=== PATIENT | male | born 1970 | race Caucasian/White ===

== ENCOUNTER 2022-06-01 19:23 | Outpatient (CLI) | payer BC, SELFPAY ==
[2022-06-01 12:31] LABS: Albumin* 4.1 g/dL (3.3-5.0)
[2022-06-01 12:32] LABS: Potassium* 4.3 mmol/L (3.6-5.1)
[2022-06-01 12:34] LABS: Aspartate Amino Transferase* 26 U/L (12-35); Bilirubin Total* 0.2 mg/dL (0.1-1.5); Blood Urea Nitrogen* 15 mg/dL (7-30); Creatinine* 1.2 mg/dL (0.5-1.5); Estimated Glomerular Filt Rate 73 ml/min; Total Protein* 6.6 g/dL (6.0-8.3)
[2022-06-01 12:35] LABS: Alanine Aminotransferase* 34 U/L (4-50); Calcium* 8.8 mg/dL (8.4-10.6); HDL Cholesterol* 33 mg/dL (>=40)
[2022-06-01 12:48] LABS: Vitamin D 25 Hydroxy* 40 ng/mL (30-80)
[2022-06-01 13:12] LABS: Alkaline Phosphatase* 188 U/L (40-150); Carbon Dioxide* 25 mmol/L (20-32); Chloride* 109 mmol/L (96-114); Cholesterol* 167 mg/dL (90-199); Glucose* 122 mg/dL (60-115); LDL Cholesterol Calculated 90 mg/dL (<100); Sodium* 142 mmol/L (135-149); Triglycerides* 221 mg/dL (40-149)
== END 2022-06-01 19:24 | disposition home or self-care (01) ==
PROVIDERS: Nurse Practitioner Family; PCP Family Medicine; Visit Provider Family Medicine
DX: Z00.00 Encounter for general adult medical examination without abnormal findings (principal); E78.00 Pure hypercholesterolemia, unspecified; I10 Essential (primary) hypertension; Z79.899 Other long term (current) drug therapy
CPT/HCPCS: 80053; 80061; 82306

== ENCOUNTER 2022-06-07 08:45 | Outpatient (CLI) | payer BC, SELFPAY ==
[2022-06-07 16:05] LABS: Phosphorus* 3.4 mg/dL (2.5-4.5)
[2022-06-07 16:55] LABS: Vitamin B12* 322 pg/mL (243-894)
== END 2022-06-07 08:46 | disposition home or self-care (01) ==
PROVIDERS: PCP Family Medicine; Visit Provider Family Medicine
DX: Z00.00 Encounter for general adult medical examination without abnormal findings (principal); E78.1 Pure hyperglyceridemia; I10 Essential (primary) hypertension; G43.109 Migraine with aura, not intractable, without status migrainosus; Z79.899 Other long term (current) drug therapy; H53.2 Diplopia; F41.9 Anxiety disorder, unspecified
CPT/HCPCS: 82607; 84100; 84443

== ENCOUNTER 2022-08-02 15:06 | Outpatient (CLI) | payer BC, SELFPAY ==
[2022-08-02 22:41] LABS: Free T4 Free Thyroxine* 0.35 ng/dL (0.70-1.85)
[2022-08-08 10:36] LABS: Sex Hormone Binding Globulin 25 nmol/L (19-76); Testosterone, Free LC-MS/MS 50.6 pg/mL (47.0-244.0); Testosterone, LC-MS/MS 249 ng/dL (300-890)
== END 2022-08-02 15:07 | disposition home or self-care (01) ==
LOC: LKVREF 15:07
PROVIDERS: PCP Family Medicine; Visit Provider Nurse Practitioner Family
DX: Z00.00 Encounter for general adult medical examination without abnormal findings (principal); F32.A Depression, unspecified; E66.9 Obesity, unspecified
CPT/HCPCS: 84270; 84402; 84403; 84439; 84481

== ENCOUNTER 2022-11-13 08:27 | Outpatient (CLI) | payer BC, SELFPAY ==
[2022-11-13 13:50] LABS: Chloride* 112 mmol/L (96-114); Sodium* 147 mmol/L (135-149)
[2022-11-13 13:52] LABS: Bilirubin Total* 0.3 mg/dL (0.1-1.5); Creatinine* 1.1 mg/dL (0.5-1.5); Estimated Glomerular Filt Rate 81 ml/min
[2022-11-13 13:53] LABS: Alanine Aminotransferase* 29 U/L (4-50); Alkaline Phosphatase* 180 U/L (40-150); Aspartate Amino Transferase* 24 U/L (12-35); Blood Urea Nitrogen* 13 mg/dL (7-30); Calcium* 9.8 mg/dL (8.4-10.6); Carbon Dioxide* 29 mmol/L (20-32); Glucose* 140 mg/dL (60-115); Total Protein* 6.9 g/dL (6.0-8.3)
[2022-11-13 13:54] LABS: Potassium* 4.8 mmol/L (3.6-5.1)
[2022-11-13 14:27] LABS: TSH With Reflex to FT4* < 0.015 uIU/mL (0.270-4.200)
[2022-11-13 15:04] LABS: Free T4 Free Thyroxine* 0.24 ng/dL (0.70-1.85)
[2022-11-14 15:31] LABS: Sex Hormone Binding Globulin 38 nmol/L (19-76); Testosterone, Adult Male 269 ng/dL (300-890); Testosterone, Free Calculation 44 pg/mL (47-244); Testosterone, Percentage Free 1.6 % (1.6-2.9)
== END 2022-11-13 08:28 | disposition home or self-care (01) ==
LOC: FRMREF 08:28
PROVIDERS: PCP Family Medicine; Visit Provider Family Medicine
DX: R79.89 Other specified abnormal findings of blood chemistry (principal); I10 Essential (primary) hypertension
CPT/HCPCS: 80053; 84270; 84402; 84403; 84439; 84443

== ENCOUNTER 2023-03-14 09:25 | Outpatient (CLI) | payer BC, SELFPAY | END 2023-03-14 09:26 | disposition home or self-care (01) | LOC: NFLDREF 19:20 | PROVIDERS: PCP Family Medicine; Referring Provider Family Medicine; Visit Provider Family Medicine | DX: R79.89 Other specified abnormal findings of blood chemistry (principal); H53.2 Diplopia; E03.9 Hypothyroidism, unspecified; E66.9 Obesity, unspecified; R73.03 Prediabetes; I10 Essential (primary) hypertension; E78.1 Pure hyperglyceridemia | CPT/HCPCS: 80076; 84270; 84402; 84403; 84439; 84443 ==

== ENCOUNTER 2023-04-26 11:17 | Outpatient (CLI) | payer BC, SELFPAY | END 2023-04-26 11:18 | disposition home or self-care (01) | PROVIDERS: PCP Family Medicine; Visit Provider Family Medicine | DX: E03.9 Hypothyroidism, unspecified (principal); E66.9 Obesity, unspecified | CPT/HCPCS: 84443 ==

== ENCOUNTER 2023-08-13 08:59 | Outpatient (CLI) | payer BC, SELFPAY | END 2023-08-13 09:00 | disposition home or self-care (01) | LOC: NFLDREF 08-16 20:43 | PROVIDERS: PCP Family Medicine; Referring Provider Family Medicine; Visit Provider Family Medicine | DX: D58.2 Other hemoglobinopathies (principal); R79.89 Other specified abnormal findings of blood chemistry | CPT/HCPCS: 84270; 84402; 84403 ==

== ENCOUNTER 2023-08-27 09:33 | Outpatient (CLI) | payer BC, SELFPAY | END 2023-08-27 09:34 | disposition home or self-care (01) | LOC: NFLDREF 08-29 06:01 | PROVIDERS: PCP Family Medicine; Referring Provider Family Medicine; Visit Provider Family Medicine | DX: D58.2 Other hemoglobinopathies (principal); E03.9 Hypothyroidism, unspecified; R73.03 Prediabetes; R79.89 Other specified abnormal findings of blood chemistry; D61.818 Other pancytopenia | CPT/HCPCS: 80076; 82728; 84270; 84402; 84403; 84443 ==

== ENCOUNTER 2023-09-19 18:53 | Outpatient (CLI) | payer BC, SELFPAY ==
--- NOTE | 2024-05-12 09:16 | W.PM.SLEEP ---
Sleep Study Details Details Interpreting Provider: Milton Date of Sleep Study: 09/19/23 Sleep Study Details: STUDY TYPE:? Home unattended ? BMI:? Not recorded ORDERING PROVIDER:? Milton INDICATION:? Concern about sleep apnea ? SLEEP SUMMARY:? 442 minutes monitored RESPIRATORY SUMMARY:? AHI 17.6 11.3% of study oxygen below 90%, low oxygen 83 Snoring 8.3% PERIODIC LIMB MOVEMENTS OF SLEEP:? Not recorded CARDIAC:? Range 18-103, mean 70.5 IMPRESSION:? Significant bradycardia noted further cardiac evaluation may be indicated Moderate obstructive sleep apnea RECOMMENDATION: Treatment options for the sleep apnea include CPAP dental appliance and/or airway expansion surgery. Further cardiac evaluation may be indicated.
== END 2023-09-19 18:54 | disposition home or self-care (01) ==
PROVIDERS: PCP Family Medicine; Visit Provider Otolaryngology
DX: G47.33 Obstructive sleep apnea (adult) (pediatric) (principal); R00.1 Bradycardia, unspecified
CPT/HCPCS: 95806

== ENCOUNTER 2023-10-29 08:39 | Outpatient (CLI) | payer BC, SELFPAY ==
--- OUTSIDE RECORDS SUMMARY | 2023-10-29 08:55 | XMS_ITS | Encounter Summary ---
Author Name Unknown Organization [facility] Address [address] [place] [address] Care Team Providers Care Director Print Name Role Phone Everett Hendrix MD Primary Care Provider Encounter Details Date Type Department Care Team Description 06/19/1998 Orders Only Luis Alberto Cadena MD [address] [place], [place] [id number] Social History Tobacco Use Types Packs/Day Years Used Date Smoking Tobacco: Never Assessed Sex and Gender Information Value Date Recorded Sex Assigned at Not on file Gender Identity Not on file Sexual Orientation Not on file documented as of this encounter Plan of Treatment Not on file documented as of this encounter Visit Diagnoses Not on filedocumented in this encounter Care Teams Director Print Relationship Specialty Start Date End Date Everett Hendrix MD [address] [place] [address] PCP - General 07/07/14 documented as of this encounter
--- OUTSIDE RECORDS SUMMARY | 2023-10-29 08:55 | XMS_ITS | Clinical Summary ---
Author Name Unknown Organization [facility] Address [place], [place] [address] Care Team Providers Care Wire Lather Name Role Phone Jean Alfaro [facility] Unavailable [phone] Aquiles Mcelroy MD Primary Care Provider [phone] Allergies No known active allergies Medications Medication Sig Dispensed Refills Start Date End Date Status medication order composer Due patients migraines, diagnosis 346.90, it is suggested that patient have a 20% tint to the windows in his personal vehicle. 1 use 0 10/21/2014 Active rizatriptan (MAXALT) 5 mg tabletIndications:Mi graine without status migrainosus, not intractable, unspecified migraine type TAKE ONE TABLET BY MOUTH EVERY 2 HOURS NEEDED FOR MIGRAINE. MAX 6 TABLETS IN 24 HOURS. 9 tablet 7 12/02/2017 Active topiramate (TOPAMAX) 25 mg tab Take 75 mg by mouth 2 times daily. 0 11/11/2017 Active venlafaxine (EFFEXOR XR) 37.5 mg Extended-Release capsuleIndications:M igraine without status migrainosus, not intractable, unspecified migraine type,Generalized anxiety disorder TAKE ONE CAPSULE BY MOUTH EVERY DAY WITH A MEAL WITH THE 150 MG CAPSULE 30 capsule 0 06/10/2018 Active methylPREDNISolone (MEDROL DOSEPAK) 4 mg tabletIndications:Ch ronic left-sided low back pain without sciatica Take by mouth as instructed per packaging. 1 Package 0 06/29/2018 Active amitriptyline (ELAVIL) 10 mg tablet TAKE 3 TABLETS BY MOUTH AT BEDTIME FOR 7 DAYS , THEN TAKE 4 TABLETS AT BEDTIME 5 03/17/2019 Active AJOVY 225 mg/1.5 mL syrg INJECT 1.5ML UNDER THE SKIN MONTHY 3 12/19/2018 Active busPIRone (BUSPAR) 30 mg tablet TAKE 1/2 TABLET BY MOUTH EVERY MORNING AND TAKE ONE TABLET BY MOUTH AT BEDTIME 0 11/28/2021 Active acetaminophen-caffei ne-butalbital (FIORICET) 325-40-50 mg capsule TAKE ONE TO TWO CAPSULES BY MOUTH EVERY 4 HOURS NEEDED MAX 6/DAY 0 09/08/2021 Active propranolol ER (INDERAL LA) 80 mg Cs24 Sustained-Release capsule Take 80 mg by mouth once daily. 0 01/16/2022 Active scopolamine 1mg over 3 days (TRANSDERM SCOP) patch APPLY ONE PATCH ONTO THE SKIN EVERY 72 HOURS . 0 11/12/2021 Active Aimovig Autoinjector 70 mg/mL auto-injector INJECT CONTENTS OF ONE SYRINGE EVERY MONTH DIRECTED 0 01/15/2022 Active dextroamphetamine-am phetamine (ADDERALL XR) 30 mg Extended-Release capsule Take 30 mg by mouth once daily. 0 12/07/2021 Active buPROPion (WELLBUTRIN XL) 150 mg Extended-Release tablet Take 150 mg by mouth once daily. 0 11/20/2021 Active Active Problems Problem Noted Date Diagnosed Date Elevated fasting glucose 02/10/2017 Overview: January 2017: fasting 113. Repeat February 2017, fasting 101 and A1c 4.6 Generalized anxiety disorder 05/31/2016 Overview: May 2016: episodic anxiety, started sertraline (Zoloft). Severe side effects so Patient stopped after 9 days. Aug 2016: Increased buspirone to 10mg twice daily, via Technical Machine Message. January 2017: Added effexor XR. February 2017: increased dose to 150mg Rectal bleeding 12/23/2015 Overview: He underwent a colonoscopy a Jun 2011 by ??Shay at the [facility].?? Jul 2016: colonoscopy by ??Shay at the [facility], recommended repeat in 5 years, no abnormality found on this colonoscopy. Calculus of gallbladder with acute on chronic cholecystitis without obstruction 12/12/2015 LOC (loss of consciousness) 09/20/2015 Overview: August 2015: episode of LOC and nausea and retrograde amnesia, seen in ER and had Negative Head CT. Testicular abnormality 10/01/2014 Overview: Sep 28, 2014: Ultrasound shows 7mm abnormality in left testicle and recommended 1-2 month repeat ultrasound. Postoperative ileus 08/13/2014 Obesity 08/13/2014 Lumbar disc herniation with radiculopathy 2013 Overview: 2013: MRI February shows L5-S1 disc herniation. 2013: MedX program through [facility]. Jul 2017: At [facility]< Right, TF JANNETH at S1, lidocaine was 75% relief. ~ December 2017: L5-S1 TF epidural steroid injection at [facility]. Dizziness - light-headed 02/19/2013 Overview: Holter monitor outside ([facility]) clinic February 2011, see scan. Hydrocele, left 11/20/2012 Overview: Ultrasound Eufemia Wilder Apr 2006. Migraine headache Overview: Has aura. Work up April 2014 through [facility], MRI/MRA of neck and brain. November 2015: Dr. Alfaro Follow up neurologist, continue Depakote. November 2016: yearly follow up with Dr. Alfaro. Apr 2017: increased Depakote. November 2017: Dr. Alfaro Changed depakote to Topamax due to weight gain. December 2018: Neurologist started Ajovy. Immunizations Name Administration Dates Next Due Influenza A (H1N1), Inactiva jeff (Age >=3 Years) 07/21/2009 Influenza Virus, Unspecified 05/24/2016, 06/26/2012,06/28/2011,2009,11/07/2007 Influenza, IIV4 07/20/2014 Influenza, IIV4 (=>6mos) MDV 08/20/2017 Td (Age >=7 Years) 05/26/2002 Tdap 09/20/2009 Family History * Patient is adopted Medical History Relation Name Comments Cancer Father Thinks Lung can cer. Other Maternal Aunt MS, in 40 's. Mental illness Mother Anxiety and d epression Relation Name Status Comments Father Maternal Aunt Mother Social History Tobacco Use Types Packs/Day Years Used Date Smoking Tobacco: Never Smokeless Tobacco: Never Tobacco Cessation:Counseling Given: Yes Alcohol Use Standard Drinks/Week Comments No 1.7 (1 standard drink = 0.6 oz p ure alcohol) social-rare Social Connections Answer Date Recorded Frequency of Communication with Friends and Fami ly Not on file 09/23/2021 Financial Resource Strain Answer Date R ecorded Difficulty of Paying Living Expenses Not on file 09/23/2021 Difficulty of Paying Living Expenses Not on file 09/23/2021 Sex and Gender Information Value Date Recorded Sex Assigned at Not on file Gender Identity Not on file Sexual Orientation Not on file Obstetrics History Last Filed Vital Signs Vital Sign Reading Time Taken Comments Blood Pressure 130/81 02/09/2022 2:00 PM CDT Pulse 85 02/09/2022 2:00 PM CDT Temperature 36.5 ??C (97.7 ??F) 02/09/2022 2:00 PM CD T Respiratory Rate 12 02/09/2022 2:00 PM CDT Oxygen Saturation 97% 02/09/2022 2:00 PM CDT Inhaled Oxygen Concentration - - Weight 111.1 kg (245 lb) 02/09/2022 2:00 PM CDT Height 180.3 cm (5' 11) 02/09/2022 2:00 PM CDT Body Mass Index 34.17 02/09/2022 2:00 PM CDT Plan of Treatment Health Maintenance Due Date Last Done Comments HIV for age 15-65 1986 Hepatitis C screening for age 18-79 1989 Depression screening for age 12+ 08/22/2018 08/22/2017, 08/19/2017, 03/11/2017, Additional history exists BMI (ht and wt on same day) for age 18+ 12/20/2018 12/20/2017, 07/22/2017, 03/11/2017, Additional history exists Tetanus booster 09/20/2019 09/20/2009, 05/26/2002 Zoster (shingles) series for age 50+ (1 of 2) 2021 Lipids for age 45-75 12/20/2022 12/20/2017, 12/23/2015, 04/23/2014, Additional history exists COVID-19 vaccine series ( season) 2023 01/31/2022, 08/09/2021, 11/15/2020, Additional history exists Influenza for age 50-64 05/24/2023 08/20/20 17, 05/24/2016, 07/20/2014, Additional history exists Colonoscopy through age 75 07/27/2026 07/27/2016, Tdap Completed 09/20/2009 Pneumococcal series for age 6-64 Aged Out No longer eligible based on patient's age to complete this topic Advance Directives Latest Code Status on File Code Status Date Activated Date Inactivated Comments Full Code 08/13/2014 7:55 AM 08/14/2014 3:28 PM Code Status History Code Status Date Activated Date Inactivated Comments Full Code 08/10/2014 10:45 AM 08/11/2014 2:38 PM Full Code 08/10/2014 6:12 AM 08/10/2014 10:45 AM Care Teams Wire Lather Relationship Specialty Start Date End Date Aquiles Mcelroy MD [address] [place] [address] [facility] - General 03/30/19 Jean Alfaro, [facility] Neurology Neurology 04/29/17
--- OUTSIDE RECORDS SUMMARY | 2023-10-29 08:55 | XMS_ITS | Encounter Summary ---
Author Name Unknown Organization [facility] Address [address] [place] [address] Care Team Providers Care Curtain Framer Name Role Phone Everett Hendrix MD Primary Care Provider [phone] Encounter Details Date Type Department Care Team Description 04/10/1996 Notes/Orders Alonzo Chapman MD [address] [place] [address] Social History Tobacco Use Types Packs/Day Years Used Date Smoking Tobacco: Never Assessed Sex and Gender Information Value Date Recorded Sex Assigned at Not on file Gender Identity Not on file Sexual Orientation Not on file documented as of this encounter Plan of Treatment Not on file documented as of this encounter Visit Diagnoses Not on filedocumented in this encounter Care Teams Curtain Framer Relationship Specialty Start Date End Date Everett Hendrix MD [address] [place] [address] PCP - General 07/07/14 documented as of this encounter
--- OUTSIDE RECORDS SUMMARY | 2023-10-29 08:55 | XMS_ITS | Continuity of Care Document ---
Author Name [facility] Organization [facility] Care Team Providers Care Manufacturing Tech Name Role Phone [facility] Unavailable Unavailable Problems Combined list of problems from Department of Defense and [facility] facilities. It does not include entries that were removed or entered in error. Problem Status Onset Date Problem Type Date of Resolution Comments Source Diagnosis: ICD-10-CM Z46.1 Encounter for fitting and adjustment of hearing aid Active Diagnosis [facility] Diagnosis: ICD-10-CM H90.3 Sensorineural hearing loss, bilateral Active Diagnosis [facility] Diagnosis: ICD-10-CM Z02.89 Encounter for other administrative examinations Active Diagnosis [facility] Encounters Combined list of: 1) Encounters from Department of Veterans Affairs facilities going back up to thelast 18 months. 2) Encounters from the Department of [place] facilities going back up to 280 months. Location Location Details Encounter Type Encounter Number Reason For Visit Attending Provider ADM Date DC Date Status Disposition Source [facility] Outpatient Encounter [id number] Diagnos is: ICD-10- CM Z02.89 Encount er for other adminis trative examina tions<b r/> JOI TRAN 10/25 [facility] [place] [id number] Diagnos is: ICD-10- CM H90.3 Sensori neural hearing loss, bilater al
GABRIELLE FRAGOSO RSEDINSON M 02/27 [facility] [id number] Diagnos is: ICD-10- CM Z46.1 Encount er for fitting and adjustm ent of hearing aid<br/ > GABRIELLE FRAGOSO RSTEN M 04/22 [facility]
--- OUTSIDE RECORDS SUMMARY | 2023-10-29 08:55 | XMS_ITS | Clinical Summary ---
Author Name Unknown Organization [facility] Address [address] [place] [address] Care Team Providers Care Order Make Up Clerk Name Role Phone Kecia Guillen GC Unavailable Everett Hendrix MD Primary Care Provider Active Problems Problem Noted Date Diagnosed Date Lumbar radiculopathy 03/05/2014 Social History Tobacco Use Types Packs/Day Years Used Date Smoking Tobacco: Never Assessed Adolescent Education Answer Date Record ed Getting School Help Needed Not on file 06/23 Sex and Gender Information Value Date Recorded Sex Assigned at Not on file Gender Identity Not on file Sexual Orientation Not on file Plan of Treatment Health Maintenance Due Date Last Done Comments ADVANCE CARE PLANNING 1971 ANNUAL REVIEW OF HM ORDERS 1971 CT COLONOGRAPHY 1971 FIT 1971 FLEX SIG 1971 GLUCOSE 1971 HEPATITIS B IMMUNIZATION (1 of 3 - 3-dose series) 1971 YEARLY PREVENTIVE VISIT 1971 sDNA (Cologuard) 1971 COVID-19 Vaccine (#1) 1971 COLONOSCOPY 1981 COLORECTAL CANCER SCREENING 1981 HIV SCREENING 1986 HEPATITIS C SCREENING 1989 DTAP/TDAP/TD IMMUNIZATION (1 - Tdap) 1996 LIPID 2011 ZOSTER IMMUNIZATION (1 of 2) 2021 INFLUENZA VACCINE (#1) 2023 6, 07/20/2014, 06/26/2012, Additional history exists PHQ-2 (once per calendar year) 2023 HPV IMMUNIZATION Aged Out No longer e ligible based on patient's age to complete this topic IPV IMMUNIZATION Aged Out No longer e ligible based on patient's age to complete this topic MENINGITIS IMMUNIZATION Aged Out No l onger eligible based on patient's age to complete this topic Pneumococcal Vaccine: Pediatrics (0 to 5 Years) and At-Risk Patients (6 to 64 Years) Aged Out No longer eligible based on patient's age to complete this topic RSV MONOCLONAL ANTIBODY Aged Out No l onger eligible based on patient's age to complete this topic Care Teams Order Make Up Clerk Relationship Specialty Start Date End Date Everett Hendrix MD [address] [place] [address] PCP - General Family Medicine - Sports Medicine 08/01/17 Kecia Guillen GC [address] [place] [address] Genetic Counselor Genetic Counselor, [place] 07/15/17
--- OUTSIDE RECORDS SUMMARY | 2023-10-29 08:55 | XMS_ITS | Clinical Summary ---
Author Name Unknown Organization [facility] Address [address] [place] [address] Care Team Providers Care Exterior Interior Specialist Name Role Phone Everett Hendrix MD Primary Care Provider [phone] Source Comments You are receiving this document as you are listed as the primary care provider,follow-up provider, or the patient has been referred to you for consultation.This is in compliance with the Medicare and[facility] Hospital[facility] EHR Incentive Program,which states Providers who transition their patient to another setting of careor provider of care or refers their patient to another provider of care shouldprovide summary care record for each transition of care or referral. [facility] Allergies Active Allergy Reactions Criticality Noted Date Comments Aspirin Unknown 06/22/1998 No history of reaction, told as child he was allergic by parents. Aspirin Unknown 08/07/2000 No history of reaction, told as child he was allergic by parents. Medications Medication Sig Dispensed Refills Start Date End Date Status acetaminophen-isomet heptene-dichloral (AKA MIDRIN) 65-100-325 MG capsule Take 2 capsules by mouth every 4 hours as needed. LW Addl Instr:Maximum capsules 8/day. 30 0 03/05/2008 Active UNKNOWN MEDICATION Indications: PN: 0 11/07/2007 Active amitriptyline (ELAVIL) 10 MG tablet Take 40 mg by mouth daily at bedtime. 0 06/04/2022 Active amphetamine-dextroam phetamine XR (ADDERALL XR) 20 MG 24 hour release capsule Take 20 mg by mouth every morning. 0 04/03/2022 Active buPROPion (WELLBUTRIN XL) 300 MG 24 hour release tablet Take 300 mg by mouth every morning. 0 06/05/2022 Active busPIRone (BUSPAR) 30 MG tablet Take 30 mg by mouth two times a day. 0 05/27/2022 Active butalbital-acetamino phen-caffeine (FIORICET) 50-325-40 MG tablet Take by mouth. 0 06/20/2022 Active AIMOVIG 70 MG/ML injection Inject subcutaneously every 4 weeks. 0 04/16/2022 Active liothyronine (CYTOMEL) 25 MCG tablet Take 25 mcg by mouth daily. 0 06/14/2022 Active propranolol (INDERALLA) 80 MG 24 hour release capsule Take 80 mg by mouth daily. 0 04/28/2022 Active rizatriptan (MAXALT-NURSE GYNECOLOGY) 5 MG disintegrating tablet Take 5 mg by mouth daily as needed. 0 03/25/2022 Active topiramate (TOPAMAX) 100 MG tablet Take 100 mg by mouth two times a day. 0 05/11/2022 Active venlafaxine (EFFEXORXR) 150 MG 24 hour release capsule Take by mouth. 0 04/17/2022 Active liothyronine (CYTOMEL) 50 MCG tablet Take 1 Tablet (50 mcg) by mouth every morning. 0 08/03/2022 Active Active Problems Problem Noted Date Diagnosed Date Migraine 02/27/2003 Overview: Migraine Without Aura Immunizations Name Administration Dates Next Due Flu Vac Preserv Free (3+yrs) 11/07/2007 Td 05/26/2002,09/22/1991 Varicella 06/23/1998(Deferred: Immune by Fredrick iglesias) Social History Tobacco Use Types Packs/Day Years Used Date Smoking Tobacco: Never Tobacco Cessation:Counseling Given: Not Answered Sex and Gender Information Value Date Recorded Sex Assigned at Not on file Gender Identity Not on file Sexual Orientation Not on file Last Filed Vital Signs Vital Sign Reading Time Taken Comments Blood Pressure 116/86 11/07/2007 3:29 PM EMBALMER ASSISTANT Pulse 60 11/07/2007 3:29 PM EMBALMER ASSISTANT Temperature 36.7 ??C (98.1 ??F) 09/04/2006 1 2:13 PM EMBALMER ASSISTANT ORAL C: 36.7 C Respiratory Rate 16 05/09/2006 1:12 PM CDT Oxygen Saturation - - Inhaled Oxygen Concentration - - Weight 90.7 kg (199 lb 15.7 oz) 11/07/2007 3:29 PM EMBALMER ASSISTANT C: 90.7kg Height 179.1 cm (5' 10.5) 11/07/2007 3 :29 PM EMBALMER ASSISTANT C: 179.1cm Body Mass Index 28.29 11/07/2007 3:29 PM EMBALMER ASSISTANT Plan of Treatment Health Maintenance Due Date Last Done Comments Colon Cancer Screening Plan Due 1971 Hep C Screening (Preventive Services) 1971 HepB (1) 1971 PSA Screening Discussion 1971 HIV Screening (Preventive Services) 1987 Adult Preventive Visit 1989 Cholesterol 11/08/2012 11/08/2007, 07/21/2002 Zoster/Shingles (2 of 2) 08/24/2022 06/29/2022 COVID-19 Vaccine ( season) 2023 01/31/2022, 08/09/2021, 11/15/2020, Additional history exists Influenza (#1) 2023 06/29/2022, 06/23, 06/05/2020, Additional history exists DTaP/Tdap/Td (4 - Tdap) 06/01/2029 06/01/20 19, 09/20/2009, 09/20/2009, Additional history exists HepA Aged Out No longer eligi ble based on patient's age to complete this topic Hib Aged Out No longer eligi ble based on patient's age to complete this topic IPV (Polio) Aged Out No longer eligi ble based on patient's age to complete this topic MCV4 Aged Out No longer eligi ble based on patient's age to complete this topic Pneumococcal Aged Out No longer eligi ble based on patient's age to complete this topic Care Teams Exterior Interior Specialist Relationship Specialty Start Date End Date Everett Hendrix MD [address] [place] [address] PCP - General 07/07/14
--- OUTSIDE RECORDS SUMMARY | 2023-10-29 08:56 | XMS_ITS | Referral Summary ---
Author Name Unknown Organization [facility] Address [address] [place] [address] Care Team Providers Care Senior Net Developer Name Role Phone Kecia Guillen GC Unavailable Everett Hendrix MD Primary Care Provider [phone] Active Problems Problem Noted Date Diagnosed Date Lumbar radiculopathy 03/05/2014 Social History Tobacco Use Types Packs/Day Years Used Date Smoking Tobacco: Never Assessed Adolescent Education Answer Date Record ed Getting School Help Needed Not on file 06/23 Sex and Gender Information Value Date Recorded Sex Assigned at Not on file Gender Identity Not on file Sexual Orientation Not on file Plan of Treatment Not on file Care Teams Senior Net Developer Relationship Specialty Start Date End Date Everett Hendrix MD [address] [place] [address] PCP - General Family Medicine - Sports Medicine 08/01/17 Kecia Guillen GC [address] [address] Genetic Counselor Genetic Counselor, [place] 07/15/17
== END 2023-10-29 08:40 | disposition home or self-care (01) ==
LOC: LKVREF 08:52
PROVIDERS: PCP Family Medicine; Visit Provider Family Medicine
DX: R79.89 Other specified abnormal findings of blood chemistry (principal)
CPT/HCPCS: G0103

== ENCOUNTER 2023-12-31 08:34 | Outpatient (CLI) | payer BC, SELFPAY ==
--- OUTSIDE RECORDS SUMMARY | 2024-01-20 13:51 | XMS_ITS | Clinical Summary ---
Author Name Unknown Organization [facility] Address [place], [place] [address] Care Team Providers Care Acid Purification Equipment Operator Name Role Phone Jean Alfaro Claude [facility] Unavailable [phone] Aquiles Mcelroy MD Primary Care Provider [phone] Allergies No known active allergies Medications Medication [...] 75 mg by mouth 2 times daily. 11/11/2017 Active venlafaxine (EFFEXOR XR) 37.5 mg Extended-Release capsuleIndications:M igraine without status migrainosus, not intractable, unspecified migraine type,Generalized anxiety disorder TAKE ONE CAPSULE BY MOUTH EVERY DAY WITH A MEAL WITH THE 150 MG CAPSULE 30 capsule 06/10/2018 Active methylPREDNISolone (MEDROL DOSEPAK) 4 mg tabletIndications:Ch ronic left-sided low back pain without sciatica Take by mouth as instructed per packaging. 1 Package 06/29/2018 Active amitriptyline (ELAVIL) 10 mg tablet TAKE 3 TABLETS BY MOUTH AT BEDTIME FOR 7 DAYS , THEN TAKE 4 TABLETS AT BEDTIME 5 03/17/2019 Active AJOVY 225 mg/1.5 mL syrg INJECT 1.5ML UNDER THE SKIN MONTHY 3 12/19/2018 Active busPIRone (BUSPAR) 30 mg tablet TAKE 1/2 TABLET BY MOUTH EVERY MORNING AND TAKE ONE TABLET BY MOUTH AT BEDTIME 11/28/2021 Active acetaminophen-caffei ne-butalbital (FIORICET) 325-40-50 mg capsule TAKE ONE TO TWO CAPSULES BY MOUTH EVERY 4 HOURS NEEDED MAX 6/DAY 09/08/2021 Active propranolol ER (INDERAL LA) 80 mg Cs24 Sustained-Release capsule Take 80 mg by mouth once daily. 01/16/2022 Active scopolamine 1mg over 3 days (TRANSDERM SCOP) patch APPLY ONE PATCH ONTO THE SKIN EVERY 72 HOURS . 11/12/2021 Active Aimovig Autoinjector 70 mg/mL auto-injector INJECT CONTENTS OF ONE SYRINGE EVERY MONTH DIRECTED 01/15/2022 Active dextroamphetamine-am phetamine (ADDERALL XR) 30 mg Extended-Release capsule Take 30 mg by mouth once daily. 12/07/2021 Active buPROPion (WELLBUTRIN XL) 150 mg Extended-Release tablet Take 150 mg by mouth once daily. 11/20/2021 Active Active Problems Problem Noted Date Diagnosed Date ROSIO (obstructive sleep apnea) 11/29/2023 HTN (hypertension) 11/29/2023 Elevated fasting glucose 02/10/2017 Overview: January 2017: fasting 113. Repeat February 2017, fasting 101 and A1c 4.6 Generalized anxiety disorder 05/31/2016 Overview: May 2016: episodic anxiety, started sertraline (Zoloft). Severe side effects so Patient stopped after 9 days. Aug 2016: Increased buspirone to 10mg twice daily, via DragonRAD Message. January 2017: Added effexor XR. February 2017: increased dose to 150mg Rectal bleeding 12/23/2015 Overview: He underwent a colonoscopy a Jun 2011 by ??Shay at the [facility].?? Jul 2016: colonoscopy by ??Shay at the [facility], recommended repeat in 5 years, no abnormality [...] 2017: L5-S1 TF epidural steroid injection at [facility]. Dizziness - light-headed 02/19/2013 Overview: Holter monitor [...] weight gain. December 2018: Neurologist started Ajovy. 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 Office Visit [facility] [address] [id number] Dusty Saldivar MD from Last 3 Months Immunizations Name Administration Dates Next Due Influenza [...] Friends and Fami ly Not on file 11/29/2023 Financial Resource Strain Answer Date R ecorded [...] 04/23/2014, Additional history exists COVID-19 vaccine series (2022-24 season) 2023 06/29/2022, 01/31/2022, 08/09/2021, Additional history exists Influenza for age 50-64 05/24/2024 08/20/20, 05/24/2016, 07/20/2014, Additional history exists Colonoscopy through age 75 07/27/2026 07/27/2016, Tdap Completed 09/20/2009 Pneumococcal series for age 6-64 Aged Out No longer eligible based on patient's age to complete this topic Procedures Procedure Name Priority Date/Time Associated Diagnosis Comments LIPID PANEL W REFLEX MEASURED LDL Routine 12/20/2017 7:08 AM CDT Screening cholesterol level SCAN-COLONOSCOPY 07/27/2016 12:0 0 AM CDT from Last 3 Months or Most Recently Relevant to Health Maintenance Results * (ABNORMAL) LIPID PANEL W REFLEX MEASURED LDL (12/20/2017 7:08 AM CDT) CHOLESTEROL,TOTAL 167 100 - 199 mg/dL 12/20/2017 4:01 PM CDT [facility] TRIGLYCERIDES 359(H) <150 mg/dL 12/20/2017 4:01 PM CDT [facility] HDL CHOLESTEROL 34(L) >40 mg/dL 8 4:01 PM CDT [facility] NON-HDL CHOLESTEROL 133 <145 mg/dl 12/20/2017 4:01 PM CDT [facility] CHOL/HDL RATIO 4.91(H) <4.50 12/20/2017 4:01 PM CDT [facility] LDL CHOLESTEROL 61 <=130 mg/dL 12/20/2017 4:01 PM CDT [facility] PROVIDER ORDERED STATUS FASTING 12/20/2017 4:01 PM CDT [facility] Blood BLOOD SPECIMEN / Unknown Venipuncture / Unknown 12/20/2017 7:08 AM CDT 12/20/2017 7:09 AM CDT Everett Hendrix MD CHEMISTRY [facility] [address] [place] [address], [place] * SCAN-COLONOSCOPY (07/27/2016 12:00 AM CDT) Scanner OTHER from Last 3 Months or Most Recently Relevant to Health Maintenance Advance Directives * Full Code (Latest Code Status on File) Date Activated Date Inactivated Comments 08/13/2014 7:55 AM 08/14/2014 3:28 PM * Full Code Date Activated Date Inactivated Comments 08/10/2014 10:45 AM 08/11/2014 2:38 PM * Full Code Date Activated Date Inactivated Comments 08/10/2014 6:12 AM 08/10/2014 10:45 AM Care Teams Acid Purification Equipment Operator Relationship Specialty Start Date End Date Aquiles Mcelroy MD [address] [place] [address] PCP - General 03/30/19 Jean Alfaro, [facility] Neurology Neurology 04/29/17
--- OUTSIDE RECORDS SUMMARY | 2024-01-20 13:51 | XMS_ITS | Clinical Summary ---
Author Name Unknown Organization [facility] Address [address] [place] [address] Care Team Providers Care Legislative Assistant Name Role Phone Everett Hendrix MD Primary Care Provider [phone] Source Comments You are receiving this document as you are listed as the primary care provider,follow-up provider, or the patient has been referred to you for consultation.This is in compliance with the Medicare and[facility] EHR Incentive Program,which states Providers who transition their patient to another setting of careor provider of care or refers their patient to another provider of care shouldprovide summary care record for each transition of care or referral. Electronic Brailler Allergies Active Allergy Reactions Criticality Noted Date Comments Aspirin Unknown 06/22/1998 No history of reaction, told as child he was allergic by parents. Aspirin Unknown 08/07/2000 No history of reaction, told as child he was allergic by parents. Medications Medication Sig Dispensed Refills Start Date End Date Status acetaminophen-isome theptene-dichloral (AKA MIDRIN) 65-100-325 MG capsule Take 2 capsules by mouth every 4 hours as needed. LW Addl Instr:Maximum capsules 8/day. 30 8 Active amitriptyline (ELAVIL) 10 MG tablet Take 40 mg by mouth daily at bedtime. 2 Active amphetamine-dextroa mphetamine XR (ADDERALL XR) 20 MG 24 hour release capsule Take 20 mg by mouth every morning. 2 Active buPROPion (WELLBUTRIN XL) 300 MG 24 hour release tablet Take 300 mg by mouth every morning. 2 Active busPIRone (BUSPAR) 30 MG tablet Take 30 mg by mouth two times a day. 2 Active butalbital-acetamin ophen-caffeine (FIORICET) 50-325-40 MG tablet Take by mouth. 2 Active AIMOVIG 70 MG/ML injection Inject subcutaneously every 4 weeks. 2 Active propranolol (INDERALLA) 80 MG 24 hour release capsule Take 80 mg by mouth daily. 2 Active rizatriptan (MAXALT-RN TELEPHONE TRIAGE) 5 MG disintegrating tablet Take 5 mg by mouth daily as needed. 2 Active topiramate (TOPAMAX) 100 MG tablet Take 100 mg by mouth two times a day. 2 Active venlafaxine (EFFEXORXR) 150 MG 24 hour release capsule Take by mouth. 2 Active UNKNOWN MEDICATION Indications: PN: 8 12/30/19 24 Discontinued( *Patient decision or formulary issue) liothyronine (CYTOMEL) 25 MCG tablet Take 25 mcg by mouth daily. 2 12/30/19 24 Discontinued( *Patient decision or formulary issue) liothyronine (CYTOMEL) 50 MCG tablet Take 1 Tablet (50 mcg) by mouth every morning. 2 12/30/19 24 Discontinued( *Patient decision or formulary issue) Active Problems Problem Noted Date Diagnosed Date Migraine 02/27/2003 Overview: Migraine Without Aura Encounters Date Type Department Care Team Description 01/06/2024 Telephone [facility] [address] [place] [address] Chucho Dupont MD RESULTS, TEST (MRI RIGHT ANKLE) 01/04/2024 11:45 AM CDT Ancillary Procedure [facility] [address] [place] [address] Chucho Dupont MD Pain, joint, ankle and foot, right 01/04/2024 11:30 AM CDT Ancillary Procedure [facility] [address] [place] [address] Chucho Dupont MD Pain, joint, ankle and foot, right 12/30/2023 12:45 PM CDT Ancillary Procedure [facility] [address] [place] [address] Chucho Dupont MD Pain, joint, ankle and foot, right 12/30/2023 12:40 PM CDT Office Visit [facility] [address] [place] [address] Chucho Dupont MD Pain, joint, ankle and foot, right (Primary Dx) from Last 3 Months Immunizations Name Administration Dates Next Due Flu Vac Preserv Free (3+yrs) 11/07/2007 Td 05/26/2002,09/22/1991 Varicella 06/23/1998(Deferred: Immune by Fredrick iglesias) Social History Tobacco Use Types Packs/Day Years Used Date Smoking Tobacco: Never Smokeless Tobacco: Never Tobacco Cessation:Counseling Given: Not Answered Sex and Gender Information Value Date Recorded Sex Assigned at Male 12/28/2023 10:38 AM CDT Gender Identity Male 12/28/2023 10:38 AM CDT Sexual Orientation Straight 12/28/2023 10 :38 AM CDT Last Filed Vital Signs Vital Sign Reading Time Taken Comments Blood Pressure 116/86 11/07/2007 3:29 PM CARETAKER GROUNDS Pulse 60 11/07/2007 3:29 PM [employer] Temperature 36.7 ??C (98.1 ??F) 09/04/2006 1 2:13 PM [employer] ORAL C: 36.7 C Respiratory Rate 16 05/09/2006 1:12 PM CDT Oxygen Saturation - - Inhaled Oxygen Concentration - - Weight 107 kg (236 lb) 12/30/2023 12:45 PM CDT Height 180.3 cm (5' 11) 12/30/2023 12: 45 PM CDT Body Mass Index 32.92 12/30/2023 12:45 PM CDT Plan of Treatment Upcoming Encounters Date Type Department Care Team (Late st Contact Info) Description 01/22/2024 1:00 PM CDT Appointment [facility] [address] [place] [address] Chucho Dupont MD [address] [facility] [address] [place] [address] 01/22/2024 1:35 PM CDT Appointment [facility] [address] [place] [address] Chucho Dupont MD [address] [facility] [place] [address] Health Maintenance Due Date Last Done Comments Colon Cancer Screening Plan Due 1971 Hep C Screening (Preventive Services) 1971 PSA Screening Discussion 1971 HIV Screening (Preventive Services) 1987 Adult Preventive Visit 1989 HepB (1) 1990 Diabetes Screening- (based on age and BMI) 11/08/2010 11/08/2007 Cholesterol 11/08/2012 11/08/2007, 07/21/2002 COVID-19 Vaccine ( season) 2023 06/29/2022, 01/31/2022, 08/09/2021, Additional history exists DTaP/Tdap/Td (4 - Tdap) 06/01/2029 06/01/20 19, 09/20/2009, 09/20/2009, Additional history exists Zoster/Shingles Completed 09/26/2022, 06/29/2022 Influenza Completed 08/20/2023, 03/2022, 07/11/2021, Additional history exists HepA Aged Out No [...] Procedure Name Priority Date/Time Associated Diagnosis Comments MR ANKLE RT WO IV CONT Routine 01/04/2024 12:46 PM CDT Pain, joint, ankle and foot, right XR FOOT RT 3+ VIEWS Routine 01/04/2024 1 1:50 AM CDT Pain, joint, ankle and foot, right XR ANKLE RT 3 VIEWS Routine 12/30/2023 1 2:51 PM CDT Pain, joint, ankle and foot, right HGB A1C Routine 11/08/2007 10:48 AM [employer]ER [employer]OUNDS LIPID PANEL & DIRECT LDL (IF NEEDED) Routine 11/08/2007 10:48 AM CARETAKER GROUNDS from Last 3 Months or Most Recently Relevant to Health Maintenance Results * MR Ankle Rt WO IV Cont (01/04/2024 12:46 PM CDT) Anatomical Region Laterality Modality Lower Extremity, Ankle, Foot , Leg, Skeletal, Foot & Ankle, MSK Right Magnetic Resonance 01/04/2024 12:0 3 PM CDT Impressions 01/06/2024 9:29 AM CDT TECHNIQUE: ?? Routine MRI of the right ankle was performed without contrast. COMPARISON: ??01/04/2024 FINDINGS: TENDONS: ??The peroneus longus and brevis tendons are normal. The tibialis posterior, flexor digitorum and flexor hallucis longus tendons are normal. The tibialis anterior and the visualized extensor tendons are normal. LIGAMENTS: ??The anterior and posterior talofibular ligaments and the calcaneofibular ligament are normal. The anterior and posterior inferior tibiofibular ligaments are normal. The deltoid ligament complex is intact. JOINTS: ??There is mild chondromalacia of the posterior subtalar joint with reactive marrow edema posteriorly. The tibiotalar, talonavicular, and calcaneocuboid joints are unremarkable without evidence of focal cartilage defect. There is mild navicular cuneiform chondromalacia with reactive marrow edema in the navicular medially. There is soft tissue edema in the tarsal sinus and marrow edema in the adjacent calcaneus at the angle of Gissane, which can be seen with tarsal sinus syndrome. There is mild nonspecific marrow edema at the posterior aspect of the medial and lateral malleoli. The talocalcaneal ligament is normal. ACHILLES TENDON/PLANTAR FASCIA: ??The Achilles tendon and plantar fascia are normal. There is no significant fluid in the retrocalcaneal bursa. MARROW AND SOFT TISSUES: ??Marrow signal is normal. No soft tissue mass is identified. Specifically, no soft tissue masses or other abnormality in the tarsal tunnel. IMPRESSION: ?? 1. No evidence of a tendon tear. 2. Mild chondromalacia of the posterior subtalar and navicular cuneiform joints with mild reactive subchondral marrow edema. 3. Imaging findings suggesting tarsal sinus syndrome. 4. Nonspecific areas of marrow edema at the posterior aspect of the medial and lateral malleoli. This could represent reactive edema or less likely osseous contusion. Narrative Procedure Note Michael Noguera MD - 01/06/2024 IMPRESSION TECHNIQUE: Routine MRI of the right ankle was performed withoutcontrast. COMPARISON: 01/04/2024 FINDINGS: TENDONS: The peroneus longus and brevis tendons are normal. The tibialisposterior, flexor digitorum and flexor hallucis longus tendons are normal.The tibialis anterior and the visualized extensor tendons are normal. LIGAMENTS: The anterior and posterior talofibular ligaments and thecalcaneofibular ligament are normal. The anterior and posterior inferiortibiofibular ligaments are normal. The deltoid ligament complex isintact. JOINTS: There is mild chondromalacia of the posterior subtalar joint withreactive marrow edema posteriorly. The tibiotalar, talonavicular, andcalcaneocuboid joints are unremarkable without evidence of focal cartilagedefect. There is mild navicular cuneiform chondromalacia with reactivemarrow edema in the navicular medially. There is soft tissue edema in thetarsal sinus and marrow edema in the adjacent calcaneus at the angle ofGissane, which can be seen with tarsal sinus syndrome. There is mildnonspecific marrow edema at the posterior aspect of the medial and lateralmalleoli. The talocalcaneal ligament is normal. ACHILLES TENDON/PLANTAR FASCIA: The Achilles tendon and plantar fasciaare normal. There is no significant fluid in the retrocalcaneal bursa. MARROW AND SOFT TISSUES: Marrow signal is normal. No soft tissue mass isidentified. Specifically, no soft tissue masses or other abnormality inthe tarsal tunnel. IMPRESSION: 1. No evidence of a tendon tear. 2. Mild chondromalacia of the posterior subtalar and navicular cuneiformjoints with mild reactive subchondral marrow edema. 3. Imaging findings suggesting tarsal sinus syndrome. 4. Nonspecific areas of marrow edema at the posterior aspect of the medialand lateral malleoli. This could represent reactive edema or less likelyosseous contusion. Chucho Dupont MD RAD MRI * XR Foot Rt 3+ Views (01/04/2024 11:50 AM CDT) Anatomical Region Laterality Modality Lower Extremity, Foot Digital Ra diography 01/04/2024 11:4 4 AM CDT Impressions 01/04/2024 12:38 PM CDT COMPARISON: ??None. FINDINGS: ??3 views. Bony structures of the right foot are normal. ??Joint spaces appear within normal limits. Normal alignment. Mild degenerative change at the dorsal talonavicular joint. Soft tissues are unremarkable. Narrative Procedure Note Nandini Szymanski MD - 01/04/2024 IMPRESSION COMPARISON: None. FINDINGS: 3 views. Bony structures of the right foot are normal. Jointspaces appear within normal limits. Normal alignment. Mild degenerativechange at the dorsal talonavicular joint. Soft tissues are unremarkable. 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 Presents with a well-preserved joint space for the ankle joint. There are no acute findings. Alignment is excellent. Chucho Dupont MD RAD GD * (ABNORMAL) Lipid Panel and Direct LDL(If Needed) (11/08/2007 10:48 AM [employer]) Hours Fasting 12.0 Hours HP CONVERSION Cholesterol/HDL Ratio Screen 4.3 No normal range HP CONVERSION Cholesterol 141 <200 mg/dL HP CONVERSION HDL Cholesterol 33(L) >40 mg/dL HP CONVERSION Triglycerides 119 0 - 149 mg/dL HP CONVERSION LDL Calculated 84 0 - 130 mg/dL HP CONVERSION Comment: 11/08/2007 10:4 8 AM [employer] Maverick Fagan MD LAB_1 HP CONVERSION * (ABNORMAL) Hgb A1c (11/08/2007 10:48 AM [employer]) HGB A1C Sent Ref(A) <6.0 % HP CONVERSION Comment: Elevated hemoglobin F (>5%) detected on chromatogram which is interfering with A1C. Specimen sent to reference lab for assay by alternative methodology. Elevated hemoglobin F (>5%) detected on chromatogram which is interfering with A1c. Specimen sent to reference lab for assay by alternative methodology. 11/08/2007 10:4 8 AM [employer] Maverick Fagan MD LAB_1 Performing Organization Address [facility] Co de Phone Number HP CONVERSION from Last 3 Months or Most Recently Relevant to Health Maintenance Care Teams Legislative Assistant Relationship Specialty Start Date End Date Everett Hendrix MD [address] [place] [address] PCP - General 07/07/14
--- OUTSIDE RECORDS SUMMARY | 2024-01-20 13:51 | XMS_ITS | Encounter Summary ---
Author Name Unknown Organization [facility] Address [address] [place] [address] Care Team Providers Care Pulmonary Physical Therapist Name Role Phone Everett Hendrix MD Primary Care Provider [phone] Reason for Referral * Procedure/Equipment (Routine) - Incomplete Specialty Diagnoses / Procedures Referred By Contac t Referred To Contact Diagnoses Pain, joint, ankle and foot, right Procedures FL Injection Subtalar Joint Rt Chucho Dupont MD [address] [place] [address] Referral ID Status Reason Start Date Expiration Date V isits Requested Visits Authorized [id number] Incomplete 01/07/2024 04/07/2025 1 1 * Procedure/Equipment (Routine) - Incomplete Specialty Diagnoses / Procedures Referred By Contac t Referred To Contact Diagnoses Posterior tibial tendinitis of right lower extremity Procedures US Injection Rt Tendon or Ligament Chucho Dupont MD [address] [place] [address] Referral ID Status Reason Start Date Expiration Date V isits Requested Visits Authorized [id number] Incomplete 01/07/2024 04/07/2025 1 1 Reason for Visit * Reason Comments RESULTS, TEST MRI RIGHT ANKLE Encounter Details Date Type Department Care Team (Late st Contact Info) Description 01/06/2024 Telephone [facility] [address] [facility] [place] [address] Chucho Dupont MD [address] [facility] [place] [address] RESULTS, TEST (MRI RIGHT ANKLE) Social History Tobacco Use Types Packs/Day Years Used Date Smoking Tobacco: Never Smokeless Tobacco: Never Sex and Gender Information Value Date Recorded Sex Assigned at Male 12/28/2023 10:38 AM CDT Gender Identity Male 12/28/2023 10:38 AM CDT Sexual Orientation Straight 12/28/2023 10 :38 AM CDT documented as of this encounter Nursing Notes * Tamie Solano RN - 01/07/2024 10:57 AM CDT Reached the patient to discuss the MRI results and the plan of care. Orders entered and he will be scheduled. Requesting a call back in a couple weeks to discuss the results. * Roxie Boone - 01/07/2024 10:38 AM CDT Pt is returning a missed call from the nurse. Pt requests call back. Please advise * Tamie Solano RN - 01/07/2024 9:26 AM CDT Called patient and left message to return my call. * Ct Fuentes - 01/06/2024 4:13 PM CDT Pt returning missed call from Tamie and asking for call back again when able. * Tamie Solano RN - 01/06/2024 3:[address] Dupont reviewed the images of the MRI. Orders received; US guided injection of the POSTERIOR Tibial tendon sheath for tendinitis Fl injection of the ST joint for arthritis. Called the patient to discuss but left voice message for the patient to call back, documented in this encounter Plan of Treatment Upcoming Encounters Date Type Department Care Team (Late st Contact Info) Description 01/22/2024 1:00 PM CDT Appointment [facility] [address] [place] [address] Chucho Dupont MD [address] [place] [address] [address] [place] [id number] 01/22/2024 1:35 PM CDT Appointment [facility] [address] [place] [address] Chucho Dupont MD [address] [place] [address] [address] [place] [id number] Scheduled Orders Name Type Priority Associated Diagnoses Orde r Schedule US Injection Rt Tendon or Ligament Imaging New Routine Posterior tibial tendinitis of right lower extremity Expected: 01/07/2024 (Approximate), Expires: 01/06/2025 FL Injection Subtalar Joint Rt Imaging New Routine Pain, joint, ankle and foot, right Expected: 01/07/2024 (Approximate), Expires: 01/06/2025 documented as of this encounter Visit Diagnoses Diagnosis Pain, joint, ankle and foot, right- Primary Posterior tibial tendinitis of right lower extremity documented in this encounter Care Teams Pulmonary Physical Therapist Relationship Specialty Start Date End Date Everett Hendrix MD [address] [place] [address] PCP - General 07/07/14 documented as of this encounter
--- OUTSIDE RECORDS SUMMARY | 2024-01-20 13:52 | XMS_ITS | Clinical Summary ---
Author Name Unknown Organization [facility] Address [address] [place] [address] Care Team Providers Care Station Operator Name Role Phone Kecia Guillen GC Unavailable Everett Hendrix MD Primary Care Provider [phone] Active Problems Problem Noted Date Diagnosed Date [...] FIT 1971 FLEX SIG 1971 GLUCOSE 1971 YEARLY PREVENTIVE VISIT 1971 sDNA (Cologuard) 1971 COLONOSCOPY 1981 COLORECTAL CANCER SCREENING 1981 HIV SCREENING 1986 HEPATITIS C SCREENING 1989 HEPATITIS B IMMUNIZATION (1 of 3 - 19+ 3-dose series) 1990 DTAP/TDAP/TD IMMUNIZATION (1 - Tdap) 1996 LIPID 2011 ZOSTER IMMUNIZATION (1 of 2) 2021 COVID-19 Vaccine (1 - 2022-24 season) 2023 INFLUENZA VACCINE (#1) 2023 6, 07/20/2014, 06/26/2012, [...] age to complete this topic Care Teams Station Operator Relationship Specialty Start Date End Date Everett Hendrix MD [address] [place] [address] PCP - General Family Medicine - Sports Medicine 08/01/17 Kecia Guillen GC [address] [place] [address] Genetic Counselor Genetic Counselor, MS 07/15/17
--- OUTSIDE RECORDS SUMMARY | 2024-01-20 13:52 | XMS_ITS | Encounter Summary ---
Author Name Unknown Organization [facility] Address [address] [place] [address] Care Team Providers Care Lead Quality Control Technician Name Role Phone Everett Hendrix MD Primary Care Provider Reason for Visit * Procedure/Equipment (Routine) - Incomplete Specialty Diagnoses / Procedures Referred By Contjordon t Referred To Contact Diagnoses Pain, joint, ankle and foot, right Procedures XR Ankle Rt 3 Views Chucho Dupont MD [address] [facility] [place] [address] Referral ID Status Reason Start Date Expiration Date V isits Requested Visits Authorized [id number] Incomplete 12/30/2023 03/30/2025 1 1 Encounter Details Date Type Department Care Team (Late st Contact Info) Description 12/30/2023 12:45 PM CDT Ancillary Procedure [facility] [address] [place] [address] Chucho Dupont MD [address] [facility] [place] [id number] Pain, joint, ankle and foot, right Social History Tobacco Use Types Packs/Day Years Used Date Smoking Tobacco: Never Smokeless Tobacco: Never Sex and Gender Information Value Date Recorded Sex Assigned at Male 12/28/2023 10:38 AM CDT Gender Identity Male 12/28/2023 10:38 AM CDT Sexual Orientation Straight 12/28/2023 10 :38 AM CDT documented as of this encounter Plan of Treatment Upcoming Encounters Date Type Department Care Team (Late st Contact Info) Description 01/22/2024 1:00 PM CDT Appointment [facility] [address] [place] [address] Chucho Dupont MD [address] [place] [address] [place] [address] 01/22/2024 1:35 PM CDT Appointment [facility] [address] [place] [address] Chucho Dupont MD [address] [place] [address] [place] [address] documented as of this encounter Procedures Procedure Name Priority Date/Time Associated Diagnosis Comments XR ANKLE RT 3 VIEWS Routine 12/30/2023 1 2:51 PM CDT Pain, joint, ankle and foot, right documented in this encounter Results * XR Ankle Rt 3 Views (12/30/2023 [...] is excellent. Chucho Dupont MD RAD GD documented in this encounter Visit Diagnoses Diagnosis Pain, joint, ankle and foot, right documented in this encounter Care Teams Lead Quality Control Technician Relationship Specialty Start Date End Date Everett Hendrix MD [address] [place] [address] PCP - General 07/07/14 documented as of this encounter
--- OUTSIDE RECORDS SUMMARY | 2024-01-20 13:52 | XMS_ITS | Encounter Summary ---
Author Name Unknown Organization [facility] Address [address] [place] [address] Care Team Providers Care Carbonation Tester Name Role Phone Everett Hendrix MD Primary Care Provider [phone] Encounter Details Date Type Department Care Team (Latest Contact Info) Description 04/10/1996 Notes/Orders Alonzo Chapman MD [address] [place] [address] Social History Tobacco Use Types [...] 1:00 PM CDT Appointment [facility] [address] [place], [place] [address] Chucho Dupont MD [address] [place], [place] [address] 01/22/2024 1:35 PM CDT Appointment [facility] [address] [place] [address] Chucho Dupont MD [address] [facility] [place] [address] documented as of this encounter Visit Diagnoses Not on filedocumented in this encounter Care Teams Carbonation Tester Relationship Specialty Start Date End Date Everett Hendrix MD [address] [place] [address] PCP - General 07/07/14 documented as of this encounter
--- OUTSIDE RECORDS SUMMARY | 2024-01-20 13:52 | XMS_ITS | Encounter Summary ---
Author Name Unknown Organization [facility] Address [address] [place] [address] Care Team Providers Care Manufacturing Lab Technician Name Role Phone Everett Hendrix MD Primary Care Provider [phone] Reason for Visit * Procedure/Equipment (Routine) - Incomplete Specialty Diagnoses / Procedures Referred By Contjordon t Referred To Contact Diagnoses Pain, joint, ankle and foot, right Procedures XR Foot Rt 3+ Views Chucho Dupont MD [address] [facility] [place] [address] Referral ID Status Reason Start Date Expiration Date V isits Requested Visits Authorized [id number] Incomplete 01/04/2024 04/04/2025 1 1 Encounter Details Date Type Department Care Team (Late st Contact Info) Description 01/04/2024 11:45 AM CDT Ancillary Procedure [facility] [address] [place] [address] Chucho Dupont MD [address] [facility] [place] [address] Pain, joint, ankle and foot, right Social [...] 1:00 PM CDT Appointment [facility] [address] [place] [address] Chucho Dupont MD [address] [place] [id number] 01/22/2024 1:35 PM CDT Appointment [facility] [address] [place] [address] Chucho Dupont MD [address] [place] [id number] documented as of this encounter Procedures Procedure Name Priority Date/Time Associated Diagnosis Comments XR FOOT RT 3+ VIEWS Routine 01/04/2024 1 1:50 AM CDT Pain, joint, ankle and foot, right documented in this encounter Results * XR Foot Rt 3+ Views (01/04/2024 [...] are unremarkable. Chucho Dupont MD RAD GD documented in this encounter Visit Diagnoses Diagnosis Pain, joint, ankle and foot, right documented in this encounter Care Teams Manufacturing Lab Technician Relationship Specialty Start Date End Date Everett Hendrix MD [address] [place] [address] PCP - General 07/07/14 documented as of this encounter
--- OUTSIDE RECORDS SUMMARY | 2024-01-20 13:52 | XMS_ITS | Encounter Summary ---
Author Name Unknown Organization [facility] Address [address] [place] [address] Care Team Providers Care General Assembler Installer Name Role Phone Everett Hendrix MD Primary Care Provider [phone] Reason for Visit * Procedure/Equipment (Routine) - Closed Specialty Diagnoses / Procedures Referred By Contac t Referred To Contact Diagnoses Pain, joint, ankle and foot, right Procedures MR Ankle Rt WO IV Cont Chucho Dupont MD [address] [facility] [place] [address] Referral ID Status Reason Start Date Expiration Date Visits Re quested Visits Authorized [id number] Closed 12/30/2023 03/30/2025 1 1 Encounter Details Date Type Department Care Team (Late st Contact Info) Description 01/04/2024 11:30 AM CDT Ancillary Procedure [facility] [address] [place] [address] Chucho Dupont MD [address] [facility] [place] [id number] Pain, joint, ankle and foot, right Social [...] 1:00 PM CDT Appointment [facility] [address] [place] [address] Chucho Dupont MD [address] [facility] [place] [address] 01/22/2024 1:35 PM CDT Appointment [facility] [address] [place] [address] Chucho Dupont MD [address] [facility] [place] [address] documented as of this encounter Procedures Procedure Name Priority Date/Time Associated Diagnosis Comments MR ANKLE RT WO IV CONT Routine 01/04/2024 12:46 PM CDT Pain, joint, ankle and foot, right documented in this encounter Results * MR Ankle Rt WO IV [...] likelyosseous contusion. Chucho Dupont MD RAD MRI documented in this encounter Visit Diagnoses Diagnosis Pain, joint, ankle and foot, right documented in this encounter Care Teams General Assembler Installer Relationship Specialty Start Date End Date Everett Hendrix MD 1 [place] [address] PCP - General 07/07/14 documented as of this encounter
--- OUTSIDE RECORDS SUMMARY | 2024-01-20 13:52 | XMS_ITS | Encounter Summary ---
Author Name Unknown Organization [facility] Address [address] [place] [address] Care Team Providers Care Nursing Service Administrator Name Role Phone Everett Hendrix MD Primary Care Provider [phone] Reason for Referral * Procedure/Equipment (Routine) - Incomplete Specialty Diagnoses / Procedures Referred By Contac t Referred To Contact Diagnoses Pain, joint, ankle and foot, right Procedures XR Foot Rt 3+ Views Chucho Dupont MD [address] [facility] [place] [address] Referral ID Status Reason Start Date Expiration Date V isits Requested Visits Authorized [id number] Incomplete 01/04/2024 04/04/2025 1 1 * Procedure/Equipment (Routine) - Closed Specialty Diagnoses / Procedures Referred By Contac t Referred To Contact Diagnoses Pain, joint, ankle and foot, right Procedures MR Ankle Rt WO IV Cont Chucho Dupont MD [address] [facility] [address] Referral ID Status Reason Start Date Expiration Date Visits Re quested Visits Authorized [id number] Closed 12/30/2023 03/30/2025 1 1 * Procedure/Equipment (Routine) - Incomplete Specialty Diagnoses / Procedures Referred By Contac t Referred To Contact Diagnoses Pain, joint, ankle and foot, right Procedures XR Ankle Rt 3 Views Chucho Dupont MD [address] [facility] [place] [address] Referral ID Status Reason Start Date Expiration Date V isits Requested Visits Authorized [id number] Incomplete 12/30/2023 03/30/2025 1 1 Reason for Visit * Reason Comments ANKLE PAIN Right ankle Encounter Details Date Type Department Care Team (Late st Contact Info) Description 12/30/2023 12:40 PM CDT Office Visit [facility] [address] [place] [address] Chucho Dupont MD [address] [facility] [place] [id number] Pain, joint, ankle and foot, right (Primary Dx) Social History Tobacco Use Types Packs/Day Years Used Date Smoking Tobacco: Never Smokeless Tobacco: Never Tobacco Cessation:Counseling Given: Not Answered Sex and Gender Information Value Date Recorded Sex Assigned at Male 12/28/2023 10:38 AM CDT Gender Identity Male 12/28/2023 10:38 AM CDT Sexual Orientation Straight 12/28/2023 10 :38 AM CDT documented as of this encounter Last Filed Vital Signs Vital Sign Reading Time Taken Comments Blood Pressure - - Pulse - - Temperature - - Respiratory Rate - - Oxygen Saturation - - Inhaled Oxygen Concentration - - Weight 107 kg (236 lb) 12/30/2023 12:45 PM CDT Height 180.3 cm (5' 11) 12/30/2023 12:45 PM CDT Body Mass Index 32.92 12/30/2023 12:45 PM CDT documented in this encounter Patient Instructions * Patient Instructions* Jocelynn Pepper - 12/30/2023 12:[address] Chucho Dupont MD Orthopaedic Surgeon/Foot & Ankle Specialist Government Relations Analyst, [facility] Medication Requests: Prescriptions are not filled on weekends or on weekdays after 3:00 PM MRI to be scheduled. We will call you with results. documented in this encounter Progress Notes * Meryl Garcia - 12/30/2023 12:40 PM CDTAddended by: MERYL GARCIA on: 01/04/2024 11:43 AM Modules accepted: Orders * Chucho Dupont MD - 12/30/2023 12:00 AM CDT NAME: RACHID BAILEY CSN: [id number] CLINIC NOTE DATE OF SERVICE: 12/30/2023 : 1970 CHIEF COMPLAINT: Right ankle pain for a couple of years. HISTORY OF PRESENT ILLNESS: Mr. Bailey is a 53-year-old male, who presents in the company of his for evaluation of his right ankle. The patient reports to have had pain and discomfort for a couple of years. He reports to have everted his ankle while sleeping on a wet grass in the yard. He eventually was evaluated. He was ruled out for any fractures and he reports to have pain and discomfort since then. The patient has not had any formal treatment for this. Presents today for discussion of treatment options and what we can do to improve the discomfort. He will point at the medial aspect of the ankleas the most painful area. 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 We reviewed today his past medical and surgical history, current medications, and drug allergies. PHYSICAL EXAMINATION: On today's visit, presents a pleasant male, in no apparent distress with a height of 5 feet 11 inches and a weight of 236 pounds. Denies to have any constitutional symptoms. On today's exam, he presents with full range of motion of the ankle. Inversion and eversion are quite limited. Most of the pain is located along the posterior tibialis tendon sheath. There is some discomfort with palpation of the posterior aspect of the ankle, more medially than laterally. This will be along the most posterior aspect of the subtalar joint. Forefoot exam is unremarkable. There are palpable pulses. 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 Presents with a well-preserved joint space for the ankle joint. There are no acute findings. Alignment is excellent. ASSESSMENT: Right ankle pain. Possible posterior tibialis tendinosis versus tendinitis versus hindfoot arthritis. PLAN: I discussed with the patient and his that at this point I would like to proceed with an MRI as a way to assess the status of the posterior tibialis tendon. I also discussed with them that he is not creating any irreversible damage to his ankle by having discomfort or pain. He will be contacted via phone with regard to the MRI results. In the meantime, he has no restrictions. All questions were answered. TT: 30 minutes. CHUCHO DUPONT MD FAP/AQS /[id number] documented in this encounter Plan of Treatment Upcoming Encounters Date Type Department Care Team (Late st Contact Info) Description 01/22/2024 1:00 PM CDT Appointment [facility] [address] [place] [address] Chucho Dupont MD [address] [place] [address] [place] [address] 01/22/2024 1:35 PM CDT Appointment [facility] [address] [place] [address] Chucho Dupont MD [address] [place] [address] [place] [address] documented as of this encounter Results * MR Ankle Rt [...] talonavicular joint. Soft tissues are unremarkable. Chucho FREIRE GD * XR Ankle Rt 3 Views [...] no acute findings. Alignment is excellent. Chucho ADAMS documented in this encounter Visit Diagnoses Diagnosis Pain, joint, ankle and foot, right- Primary Pain, joint, ankle and foot, right Pain, joint, ankle and foot, right Pain, joint, ankle and foot, right documented in this encounter Care Teams Nursing Service Administrator Relationship Specialty Start Date End Date Everett Hendrix MD [address] [place] [address] PCP - General 07/07/14 documented as of this encounter
--- OUTSIDE RECORDS SUMMARY | 2024-01-20 13:52 | XMS_ITS | Continuity of Care Document ---
Author Name [facility] Organization [facility] Care Team Providers Care Storage Brine Worker Name Role Phone [facility] Unavailable Unavailable Problems Combined list of problems from Department of Defense and Veterans [facility] facilities. It does not include entries that were removed or entered in error. Problem Status Onset Date Problem Type Date of Resolution Comments Source Diagnosis: ICD-10-CM Z46.1 Encounter for fitting and adjustment of hearing aid Active Diagnosis [facility] Diagnosis: ICD-10-CM H90.3 Sensorineural hearing loss, bilateral Active Diagnosis [facility] Diagnosis: ICD-10-CM Z02.89 Encounter for other administrative examinations Active Diagnosis [facility] Encounters Combined list of: 1) Encounters from Department of Veterans Affairs facilities going back up to thelast 18 months. 2) Encounters from the Department of [facility] facilities going back up to 280 months. Location Location Details Encounter Type Encounter Number Reason For Visit Attending Provider ADM Date DC Date Status Disposition Source [facility] Outpatient Encounter [id number] Diagnos is: ICD-10- CM Z02.89 Encount er for other adminis trative examina tions<b r/> JOI TRAN 10/25 [facility] [place] [id number] Diagnos is: ICD-10- CM H90.3 Sensori neural hearing loss, bilater al
GABRIELLE FRAGOSO RSEDINSON M 02/27 [facility] CONFORMITY EVALUATION [id number] Diagnos is: ICD-10- CM Z46.1 Encount er for fitting and adjustm ent of hearing aid<br/ > GABRIELLE FRAGOSO RSTEN M 04/22 [facility]
--- OUTSIDE RECORDS SUMMARY | 2024-01-20 13:52 | XMS_ITS | Encounter Summary ---
Author Name Unknown Organization [facility] Address [address] [place] [address] Care Team Providers Care Broke Man Name Role Phone Everett Hendrix MD Primary Care Provider Encounter Details Date Type Department Care Team (Latest Contact Info) Description 06/19/1998 Orders Only Luis Alberto Cadena MD [address] [place], [place] [id number] Social History Tobacco Use Types Packs/Day Years [...] 1:00 PM CDT Appointment [facility] [address] [facility] [place] [address] Chucho Dupont MD [address] [facility] [place] [id number] 01/22/2024 1:35 PM CDT Appointment [facility] [address] [place], [place] [address] Chucho Dupont MD [address] [facility] [place] [address] documented as of this encounter Visit Diagnoses Not on filedocumented in this encounter Care Teams Broke Man Relationship Specialty Start Date End Date Everett Hendrix MD [address] [place] [address] PCP - General 07/07/14 documented as of this encounter
--- OUTSIDE RECORDS SUMMARY | 2024-01-20 13:52 | XMS_ITS | Referral Summary ---
Author Name Unknown Organization [facility] Address [address] [place] [address] Care Team Providers Care Business Mail Entry Clerk Name Role Phone Kecia Guillen GC [...] of Treatment Not on file Care Teams Business Mail Entry Clerk Relationship Specialty Start Date End Date Everett Hendrix MD [address] [place] [address] PCP - General Family Medicine - Sports Medicine 08/01/17 Kecia Guillen GC [address] [address] Genetic Counselor Genetic Counselor, [place] 07/15/17
== END 2023-12-31 08:35 | disposition home or self-care (01) ==
LOC: NFLDREF 01-20 13:49
PROVIDERS: PCP Family Medicine; Referring Provider Family Medicine; Visit Provider Family Medicine
DX: R79.89 Other specified abnormal findings of blood chemistry (principal); E78.00 Pure hypercholesterolemia, unspecified
CPT/HCPCS: 80053; 80061; 84270; 84402; 84403

== ENCOUNTER 2024-04-21 08:11 | Outpatient (CLI) | payer BC, SELFPAY ==
--- OUTSIDE RECORDS SUMMARY | 2024-04-22 04:46 | XMS_ITS | Encounter Summary ---
Author Organization [facility] Address [address] [place] [address] Care Team Providers Care Sander Hand Name Role Phone Everett Hendrix MD Primary Care Provider [phone] Encounter Details Date Type Department Care Team (Latest Contact Info) Description 06/19/1998 Orders Only Luis Alberto Cadena MD [address] [place] [address] Social History Tobacco Use Types Packs/Day Years [...] on filedocumented in this encounter Care Teams Sander Hand Relationship Specialty Start Date End Date Everett Hendrix MD [address] [place] [address] PCP - General 07/07/14 documented as of this encounter
--- OUTSIDE RECORDS SUMMARY | 2024-04-22 04:46 | XMS_ITS | Clinical Summary ---
Author Organization [facility] Address [address] [place] [address] Care Team Providers Care Sharepoint Consultant Name Role Phone Kecia Guillen GC Unavailable Everett Hendrix MD Primary Care Provider [phone] Active Problems Problem Noted Date Diagnosed Date [...] of Treatment Not on file Care Teams Sharepoint Consultant Relationship Specialty Start Date End Date Everett Hendrix MD [address] [place] [address] PCP - General Family Medicine - Sports Medicine 08/01/17 Kecia Guillen GC [address] [place] [address] Genetic Counselor Genetic Counselor, [place] 07/15/17
--- OUTSIDE RECORDS SUMMARY | 2024-04-22 04:46 | XMS_ITS | Continuity of Care Document ---
Author Name [facility] Organization [facility] Care Team Providers Care Perennial House Manager Name Role Phone [facility] Unavailable Unavailable Problems Combined list of problems from Department of Defense and [facility] facilities. It does not include entries that were removed or entered in error. Problem Status Onset Date Problem Type Date of Resolution Comments Source Diagnosis: ICD-10-CM Z46.1 Encounter for fitting and adjustment of hearing aid Active Diagnosis [facility] Diagnosis: ICD-10-CM H90.3 Sensorineural hearing loss, bilateral Active Diagnosis [facility] Diagnosis: ICD-10-CM Z02.89 Encounter for other administrative examinations Active Diagnosis [facility] Encounters Combined list of: 1) Encounters from Department of Veterans Affairs facilities going back up to thelast 18 months. 2) Encounters from the Department of [facility] facilities going back up to 280 months. Location Location Details Encounter Type Encounter Number Reason For Visit Attending Provider ADM Date DC Date Status Disposition Source [facility] Outpatient Encounter [id number] Diagnos is: ICD-10- CM Z02.89 Encount er for other adminis trative examina tions<b r/> JOI TRAN 10/25 [facility] [place] [place] [id number] Diagnos is: ICD-10- CM H90.3 Sensori neural hearing loss, bilater al
GABRIELLE FRAGOSO RSEDINSON M 02/27 [facility] [id number] Diagnos is: ICD-10- CM Z46.1 Encount er for fitting and adjustm ent of hearing aid<br/ > GABRIELLE FRAGOSO RSTEN M 04/22 [facility]
--- OUTSIDE RECORDS SUMMARY | 2024-04-22 04:46 | XMS_ITS | Encounter Summary ---
Author Organization [email or web address] Address [address] [place] [address] Care Team Providers Care Oil Operator Name Role Phone Everett Hendrix MD Primary Care Provider [phone] Reason for Visit * Procedure/Equipment (Routine) - Incomplete Specialty Diagnoses / Procedures Referred By Contjordon t Referred To Contact Diagnoses Pain, joint, ankle and foot, right Procedures [place] Injection Subtalar Joint Rt Chucho Dupont MD [address] [facility] [address] [place] [address] Referral ID Status Reason Start Date Expiration Date V isits Requested Visits Authorized [id number] Incomplete 01/07/2024 04/07/2025 1 1 Encounter Details Date Type Department Care Team (Late st Contact Info) Description 01/22/2024 1:35 PM CDT Ancillary Procedure [facility] [address] [place] [address] Chucho Dupont MD [address] [facility] [address] [address] [place] [id number] Pain, joint, ankle and foot, right Social [...] on file documented as of this encounter Procedures Procedure Name Priority Date/Time Associated Diagnosis Comments FL INJECTION SUBTALAR JOINT RT Routine 01/22/2024 1:42 PM CDT Pain, joint, ankle and foot, right documented in this encounter Results * FL Injection Subtalar Joint Rt (01/22/2024 1:42 PM CDT) Anatomical Region Laterality Modality Lower Extremity, Foot, Ankle Rad iographic Imaging 01/22/2024 1:08 PM CDT Impressions 01/22/2024 2:21 PM CDT FINDINGS: The procedure, goals, risks and benefits of the procedure were discussed with the patient, who gave full written and verbal consent to proceed. The location of the procedure was confirmed, the skin initialed, and pause for cause performed. Using sterile technique, local anesthesia and fluoroscopic guidance a 25 gauge needle was advanced into the right subtalar joint. Intraarticular location of the needle tip was confirmed with the injection of 0.5 mL of Omnipaque. Subsequently, 40 mg of triamcinolone (40 mg/mL), and 2 mL 0.5% ropivacaine was administered without complication. The patient rated their pain as a 3/10 prior to the injection, and 6/10 immediately following the injection. PROCEDURE: Fluoroscopic guided right subtalar joint steroid injection Narrative Procedure Note Trudy Mercado PA-C - 01/22/2024 IMPRESSION FINDINGS: The procedure, goals, risks and benefits of the procedure werediscussed with the patient, who gave full written and verbal consent toproceed. The location of the procedure was confirmed, the skin initialed,and pause for cause performed. Using sterile technique, local anesthesiaand fluoroscopic guidance a 25 gauge needle was advanced into the rightsubtalar joint. Intraarticular location of the needle tip was confirmedwith the injection of 0.5 mL of Omnipaque. Subsequently, 40 mg oftriamcinolone (40 mg/mL), and 2 mL 0.5% ropivacaine was administeredwithout complication. The patient rated their pain as a 3/10 prior to the injection, and 6/10immediately following the injection. PROCEDURE: Fluoroscopic guided right subtalar joint steroid injection Chucho Dupont MD [facility] documented in this encounter Visit Diagnoses Diagnosis Pain, joint, ankle and foot, right documented in this encounter Administered Medications Inactive Administered Medications - up to 3 most recent administrations Medication Order MAR Action Action Date Dose Rate Site iohexol (OMNIPAQUE 180) 180 MG/ML injection 1 mL 1 mL, Intracapsular, ONCE (NON-SCHEDULED), Starting on Sat01/22/24 at 1309, Until Sat01/22/24 at 1309, For 1 dose Given 01/22/2024 1:09 PM CDT 1 mL triamcinolone acetonide (KENALOG-40) 40 MG/ML injection 40 mg 40 mg, Intra-articular, ONCE, On Sat01/22/24 at 1330, For 1 dose Given 01/22/2024 1:09 PM CDT 40 mg documented in this encounter Care Teams Oil Operator Relationship Specialty Start Date End Date Everett Hendrix MD [address] [place] [address] PCP - General 07/07/14 documented as of this encounter
--- OUTSIDE RECORDS SUMMARY | 2024-04-22 04:46 | XMS_ITS | Clinical Summary ---
Author Organization [employer] Address [place], [place] [address] Care Team Providers Care Marketing Communications Leader Name Role Phone Ovidio Alfarogogo Arce [facility] Unavailable [phone] Aquiles Mcelroy MD Primary Care Provider [phone] Allergies No known active allergies Medications Medication [...] Increased buspirone to 10mg twice daily, via [employer] Message. January 2017: Added effexor XR. February 2017: increased dose to 150mg Rectal bleeding 12/23/2015 Overview: He underwent a colonoscopy a Jun 2011 by ??Shay at the [facility].?? Jul 2016: colonoscopy by ??Shay at the [facility], recommended repeat in 5 years, no abnormality [...] 2017: L5-S1 TF epidural steroid injection at [facility]. Dizziness - light-headed 02/19/2013 Overview: Holter monitor [...] history exists Influenza for age 50-64 05/24/2024 08/20/20 17, 05/24/2016, 07/20/2014, Additional history exists [...] - 199 mg/dL 12/20/2017 4:01 PM CDT [facility] TRIGLYCERIDES 359(H) <150 mg/dL 12/20/2017 4:01 PM CDT [facility] HDL CHOLESTEROL 34(L) >40 mg/dL 8 4:01 PM CDT [facility] NON-HDL CHOLESTEROL 133 <145 mg/dl 12/20/2017 4:01 PM CDT [facility] CHOL/HDL RATIO 4.91(H) <4.50 12/20/2017 4:01 PM CDT [facility] LDL CHOLESTEROL 61 <=130 mg/dL 12/20/2017 4:01 PM CDT [facility] PROVIDER ORDERED STATUS FASTING 12/20/2017 4:01 PM CDT [facility] Blood BLOOD SPECIMEN / Unknown Venipuncture / Unknown 12/20/2017 7:08 AM CDT 12/20/2017 7:09 AM CDT Everett Hendrix MD CHEMISTRY [facility] [address] [place] [address], [place] * SCAN-COLONOSCOPY (07/27/2016 12:00 AM CDT) [...] 6:12 AM 08/10/2014 10:45 AM Care Teams Marketing Communications Leader Relationship Specialty Start Date End Date Aquiles Mcelroy MD [address] [place] [address] PCP - General 03/30/19 Jean Alfaro [facility] Neurology Neurology 04/29/17
--- OUTSIDE RECORDS SUMMARY | 2024-04-22 04:46 | XMS_ITS | Referral Summary ---
Author Organization [employer] Address [address] [place] [address] Care Team Providers Care Swine Genetics Researcher Name Role Phone Kecia Guillen GC Unavailable Everett Hendrix MD Primary Care Provider [phone] Active Problems Problem Noted Date Diagnosed Date [...] of Treatment Not on file Care Teams Swine Genetics Researcher Relationship Specialty Start Date End Date Everett Hendrix MD [address] [place] [address] PCP - General Family Medicine - Sports Medicine 08/01/17 Kecia Guillen GC [address] [place] [address] Genetic Counselor Genetic Counselor, MS 07/15/17
--- OUTSIDE RECORDS SUMMARY | 2024-04-22 04:46 | XMS_ITS | Clinical Summary ---
Author Organization [employer] Address [address] [place] [address] Care Team Providers Care Music Cataloguer Name Role Phone Everett Hendrix MD Primary Care Provider [phone] Source Comments You are receiving this document as you are listed as the primary care provider,follow-up provider, or the patient has been referred to you for consultation.This is in compliance with the Medicare and[facility] Centercaid EHR Incentive Program,which states Providers who transition their patient to another setting of careor provider of care or refers their patient to another provider of care shouldprovide summary care record for each transition of care or referral. [employer] Allergies Active Allergy Reactions Criticality Noted Date [...] needed. LW Addl Instr:Maximum capsules 8/day. 30 03/05/2008 Active amitriptyline (ELAVIL) 10 MG tablet Take 40 mg by mouth daily at bedtime. 06/04/2022 Active amphetamine-dextroam phetamine XR (ADDERALL XR) 20 MG 24 hour release capsule Take 20 mg by mouth every morning. 04/03/2022 Active buPROPion (WELLBUTRIN XL) 300 MG 24 hour release tablet Take 300 mg by mouth every morning. 06/05/2022 Active busPIRone (BUSPAR) 30 MG tablet Take 30 mg by mouth two times a day. 05/27/2022 Active butalbital-acetamino phen-caffeine (FIORICET) 50-325-40 MG tablet Take by mouth. 06/20/2022 Active AIMOVIG 70 MG/ML injection Inject subcutaneously every 4 weeks. 04/16/2022 Active propranolol (INDERALLA) 80 MG 24 hour release capsule Take 80 mg by mouth daily. 04/28/2022 Active rizatriptan (MAXALT-SURVEYOR HYDROGRAPHIC) 5 MG disintegrating tablet Take 5 mg by mouth daily as needed. 03/25/2022 Active topiramate (TOPAMAX) 100 MG tablet Take 100 mg by mouth two times a day. 05/11/2022 Active venlafaxine (EFFEXORXR) 150 MG 24 hour release capsule Take by mouth. 04/17/2022 Active Active Problems Problem Noted Date Diagnosed Date Migraine 02/27/2003 Overview: Migraine Without Aura Encounters Date Type Department Care Team Description 01/22/2024 1:35 PM CDT Ancillary Procedure [facility] [address] [place] [address] Chucho Dupont MD Pain, joint, ankle and foot, right 01/22/2024 1:00 PM CDT Ancillary Procedure [facility] [address] [place] [address] Chucho Dupont MD Posterior tibial tendinitis of right lower extremity from Last 3 Months Immunizations Name Administration [...] Comments Blood Pressure 116/86 11/07/2007 3:29 PM ELECTRICAL MECHANIC Pulse 60 11/07/2007 3:29 PM ELECTRICAL MECHANIC Temperature 36.7 ??C (98.1 ??F) 09/04/2006 1 2:13 PM ELECTRICAL MECHANIC ORAL C: 36.7 C Respiratory Rate 16 05/09/2006 1:12 PM CDT Oxygen Saturation - - Inhaled Oxygen Concentration - - Weight 107 kg (236 lb) 12/30/2023 12:45 PM CDT Height 180.3 cm (5' 11) 12/30/2023 12: 45 PM CDT Body Mass Index 32.92 12/30/2023 12:45 PM CDT Plan of Treatment Health Maintenance [...] 06/29/2022, 01/31/2022, 08/09/2021, Additional history exists Influenza (#1) 2024 08/20/2023, 1003/2022, 07/11/2021, Additional history exists DTaP/Tdap/Td (3 - Tdap) 06/01/2029 06/01/20 19, 09/20/2009, 05/26/2002, Additional history exists Zoster/Shingles Completed 09/26/2022, 06/29/2022 HepA Aged Out No longer eligi ble [...] CDT Pain, joint, ankle and foot, right US INJECTION RT TENDON OR LIGAMENT Routine 01/22/2024 1:23 PM CDT Posterior tibial tendinitis of right lower extremity HGB A1C Routine 11/08/2007 10:48 AM ELECTRICAL MECHANIC LIPID PANEL & DIRECT LDL (IF NEEDED) Routine 11/08/2007 10:48 AM ELECTRICAL MECHANIC from Last 3 Months or Most Recently Relevant to Health Maintenance Results * FL Injection Subtalar Joint Rt [...] subtalar joint steroid injection Chucho Dupont MD RAD FL * US Injection Rt Tendon or Ligament (01/22/2024 1:23 PM CDT) Anatomical Region Laterality Modality Ultrasound 01/22/2024 12:5 9 PM CDT Impressions 01/22/2024 2:19 PM CDT PROCEDURE: Ultrasound-guided right posterior tibialis tendon sheath steroid injection FINDINGS: The risks, benefits, and alternatives were discussed with the patient gave full written and verbal consent to proceed. A final pause was performed prior to the procedure to verify patient identification and site of procedure. Using 1% lidocaine as local anesthesia, sterile technique, and ultrasound guidance, a ?25- gauge needle was advanced into the right posterior tibialis tendon sheath. Under direct ultrasound visualization, approximately 2 mL of 1% lidocaine was administered into the tendon sheath. Subsequently, 1mL of ??40 mg triamcinolone (40mg/mL) was injected into the tendon sheath. Permanent images were saved. There were no immediate complications. Preprocedure pain level 3/10; postprocedure pain level 0/10. Narrative Procedure Note Kelsea Gardner PA-C - 01/22/2024 IMPRESSION PROCEDURE: Ultrasound-guided right posterior tibialis tendon sheathsteroid injection FINDINGS: The risks, benefits, and alternatives were discussed with thepatient gave full written and verbal consent to proceed. A final pause wasperformed prior to the procedure to verify patient identification and siteof procedure. Using 1% lidocaine as local anesthesia, sterile technique,and ultrasound guidance, a ?25-gauge needle was advanced into the rightposterior tibialis tendon sheath. Under direct ultrasound visualization,approximately 2 mL of 1% lidocaine was administered into the tendonsheath. Subsequently, 1mL of 40 mg triamcinolone (40mg/mL) was injectedinto the tendon sheath. Permanent images were saved. There were noimmediate complications. Preprocedure pain level 3/10; postprocedure pain level 0/10. Chucho Dupont MD RAD US * (ABNORMAL) Lipid Panel and Direct LDL(If Needed) (11/08/2007 10:48 AM ELECTRICAL MECHANIC) Hours Fasting 12.0 Hours HP CONVERSION Cholesterol/HDL Ratio Screen 4.3 No normal range HP CONVERSION Cholesterol 141 <200 mg/dL HP CONVERSION HDL Cholesterol 33(L) >40 mg/dL HP CONVERSION Triglycerides 119 0 - 149 mg/dL HP CONVERSION LDL Calculated 84 0 - 130 mg/dL HP CONVERSION Comment: 11/08/2007 10:4 8 AM ELECTRICAL MECHANIC Maverick Fagan MD LAB_1 Performing Organization Address [facility] Co de Phone Number HP CONVERSION * (ABNORMAL) Hgb A1c (11/08/2007 10:48 AM ELECTRICAL MECHANIC) HGB A1C Sent Ref(A) <6.0 % HP CONVERSION Comment: Elevated hemoglobin F (>5%) detected on chromatogram which is interfering with A1C. Specimen sent to reference lab for assay by alternative methodology. Elevated hemoglobin F (>5%) detected on chromatogram which is interfering with A1c. Specimen sent to reference lab for assay by alternative methodology. 11/08/2007 10:4 8 AM ELECTRICAL MECHANIC Maverick Fagan MD LAB_1 Performing Organization Address [facility] Co de Phone Number HP CONVERSION from Last 3 Months or Most Recently Relevant to Health Maintenance Care Teams Music Cataloguer Relationship Specialty Start Date End Date Everett Hendrix MD [address] [place] [address] PCP - General 07/07/14
--- OUTSIDE RECORDS SUMMARY | 2024-04-22 04:46 | XMS_ITS | Encounter Summary ---
Author Organization [facility] Address [address] [place] [address] Care Team Providers Care Scrap Burner Name Role Phone Everett Hendrix MD Primary Care Provider [phone] Reason for Visit * Procedure/Equipment (Routine) - Incomplete Specialty Diagnoses / Procedures Referred By Aleksandra cisse Referred To Contact Diagnoses Posterior tibial tendinitis of right lower extremity Procedures US Injection Rt Tendon or Ligament Chucho Dupont MD [address] [facility] [address] Referral ID Status Reason Start Date Expiration Date V isits Requested Visits Authorized [id number] Incomplete 01/07/2024 04/07/2025 1 1 Encounter Details Date Type Department Care Team (Late st Contact Info) Description 01/22/2024 1:00 PM CDT Ancillary Procedure [facility] [address] [place] [address] Chucho Dupont MD [address] [facility] [place] [id number] Posterior tibial tendinitis of right lower extremity Social History Tobacco Use Types Packs/Day Years [...] Procedure Name Priority Date/Time Associated Diagnosis Comments US INJECTION RT TENDON OR LIGAMENT Routine 01/22/2024 1:23 PM CDT Posterior tibial tendinitis of right lower extremity documented in this encounter Results * US Injection Rt Tendon or Ligament [...] level 3/10; postprocedure pain level 0/10. Chucho FREIRE documented in this encounter Visit Diagnoses Diagnosis Posterior tibial tendinitis of right lower extremity documented in this encounter Administered Medications Inactive Administered Medications - up to 3 most recent administrations Medication Order MAR Action Action Date Dose Rate Site triamcinolone acetonide (KENALOG-40) 40 MG/ML injection 40 mg 40 mg, Intra-articular, ONCE, On Sat01/22/24 at 1345, For 1 dose Given 01/22/2024 1:22 PM CDT 40 mg documented in this encounter Care Teams Scrap Burner Relationship Specialty Start Date End Date Everett Hendrix MD [address] [place] [address] PCP - General 07/07/14 documented as of this encounter
--- OUTSIDE RECORDS SUMMARY | 2024-04-22 04:46 | XMS_ITS | Encounter Summary ---
Author Organization [facility] Address [address] [place] [address] Care Team Providers Care Traveling Sales Representative Name Role Phone Everett Hendrix MD Primary Care Provider [phone] Encounter Details Date Type Department Care Team (Latest Contact Info) Description 04/10/1996 Notes/Orders Alonzo Chapman MD [address] [place] [address] Social History Tobacco Use Types [...] on filedocumented in this encounter Care Teams Traveling Sales Representative Relationship Specialty Start Date End Date vEerett Hendrix MD [address] [place] [address] PCP - General 07/07/14 documented as of this encounter
== END 2024-04-21 08:12 | disposition home or self-care (01) ==
LOC: NFLDREF 04-22 04:44
PROVIDERS: PCP Family Medicine; Referring Provider Family Medicine; Visit Provider Family Medicine
DX: I10 Essential (primary) hypertension (principal); E78.1 Pure hyperglyceridemia; R73.03 Prediabetes; R79.89 Other specified abnormal findings of blood chemistry; Z79.899 Other long term (current) drug therapy
CPT/HCPCS: 80053; 84270; 84402; 84403

== ENCOUNTER 2024-08-21 08:08 | Outpatient (CLI) | payer BC, SELFPAY ==
--- OUTSIDE RECORDS SUMMARY | 2024-08-21 08:19 | XMS_ITS | Continuity of Care Document ---
Author Name [facility] Organization [facility] Care Team Providers Care Solid Waste Engineer Name Role Phone [facility] Unavailable Unavailable Problems Combined list of problems from Department of Defense and Veterans [facility] facilities. It does not include entries that were removed or entered in error. Problem Status Onset Date Problem Type Date of Resolution Comments Source Diagnosis: ICD-10-CM Z46.1 Encounter for fitting and adjustment of hearing aid Active Diagnosis [facility] Diagnosis: ICD-10-CM H90.3 Sensorineural hearing loss, bilateral Active Diagnosis [facility] Encounters Combined list of: 1) Encounters from Department of Veterans Affairs facilities going back up to thelast 18 months. 2) Encounters from the Department of Defense facilities going back up to 280 months. Location Location Details Encounter Type Encounter Number Reason For Visit Attending Provider ADM Date DC Date Status Disposition Source [facility] [place] [id number] Diagnos is: ICD-10- CM H90.3 Sensori neural hearing loss, bilater al
GABRIELLE FRAGOSO 02/27 [facility] CONFORMITY EVALUATION [id number] Diagnos is: ICD-10- CM Z46.1 Encount er for fitting and adjustm ent of hearing aid<br/ > GABRIELLE FRAGOSO 04/22 [facility]
--- OUTSIDE RECORDS SUMMARY | 2024-08-21 08:19 | XMS_ITS | Clinical Summary ---
Author Organization [employer] Address [place], [place] [address] Care Team Providers Care Medical Record Administrator Name Role Phone Ovidio Alfarogogo Arce [facility] Unavailable Aquiles Mcelroy MD Primary Care Provider [phone] Allergies No known active allergies Medications Medication [...] HTN (hypertension) 11/29/2023 Elevated fasting glucose 02/10/2017 Overview (03/17/2017): January 2017: fasting 113. Repeat February 2017, fasting 101 and A1c 4.6 Generalized anxiety disorder 05/31/2016 Overview (03/11/2017): May 2016: episodic anxiety, started sertraline (Zoloft). Severe side effects so Patient stopped after 9 days. Aug 2016: Increased buspirone to 10mg twice daily, via [employer] Message. January 2017: Added effexor XR. February 2017: increased dose to 150mg Rectal bleeding 12/23/2015 Overview (07/29/2016): He underwent a colonoscopy a Jun [address] Day at the [facility]. Jul 2016: colonoscopy by Dr. Day at the [facility], recommended repeat in 5 years, no abnormality found on this colonoscopy. Calculus of gallbladder with acute on chronic cholecystitis without obstruction 12/12/2015 LOC (loss of consciousness) 09/20/2015 Overview (09/20/2015): August 2015: episode of LOC and nausea and retrograde amnesia, seen in ER and had Negative Head CT. Testicular abnormality 10/01/2014 Overview (10/01/2014): Sep 28, 2014: Ultrasound shows 7mm abnormality in left testicle and recommended 1-2 month repeat ultrasound. Postoperative ileus 08/13/2014 Obesity 08/13/2014 Lumbar disc herniation with radiculopathy 2013 Overview (12/30/2017): 2013: MRI February shows L5-S1 disc herniation. 2013: MedX program through [facility]. Jul 2017: At [facility] Right, TF JANNETH at S1, lidocaine was 75% relief. ~ December 2017: L5-S1 TF epidural steroid injection at [facility]. Dizziness - light-headed 02/19/2013 Overview (02/19/2013): Holter monitor outside ([facility]) clinic February 2011, see scan. Hydrocele, left 11/20/2012 Overview (12/11/2012): Ultrasound [facility] Apr 2006. Migraine headache Overview (12/24/2018): Has aura. Work up April 2014 through [...] 85 02/09/2022 2:00 PM CDT Temperature 36.5 C (97.7 F) 02/09/2022 2:00 PM CDT Respiratory Rate 12 02/09/2022 2:00 PM CDT [...] 04/23/2014, Additional history exists COVID-19 vaccine series (2023- season) 2024 06/29/2022, 01/31/2022, 08/09/2021, Additional history exists Influenza [...] - 199 mg/dL 12/20/2017 4:[address] [facility] TRIGLYCERIDES 359(H) <150 mg/dL 12/20/2017 4:01 PM CDT [facility] HDL CHOLESTEROL 34(L) >40 mg/dL 8 4:01 PM CDT [facility] NON-HDL CHOLESTEROL 133 <145 mg/dl 12/20/2017 4:01 PM CDT [facility] CHOL/HDL RATIO 4.91(H) <4.50 12/20/2017 4:[address] [facility] LDL CHOLESTEROL 61 <=130 mg/dL 12/20/2017 4:01 PM CD[address] [facility] PROVIDER ORDERED STATUS FASTING 12/20/2017 4:[address] [facility] Blood BLOOD SPECIMEN / Unknown Venipuncture / Unknown 12/20/2017 7:08 AM CDT 12/20/2017 7:09 AM CDT Everett Hendrix MD CHEMISTRY [facility] [address] [place] [address], [place] * SCAN-COLONOSCOPY (07/27/2016 12:00 AM CDT) [...] 6:12 AM 08/10/2014 10:45 AM Care Teams Medical Record Administrator Relationship Specialty Start Date End Date Aquiles Mcelroy MD PCP - General 03/30/19 [facility] Neu[facility] 04/29/17
--- OUTSIDE RECORDS SUMMARY | 2024-08-21 08:19 | XMS_ITS | Clinical Summary ---
Author Organization [facility] Address [address] [place] [address] Care Team Providers Care Jewelry Inspector Name Role Phone Everett Hendrix MD Primary Care Provider [phone] Source Comments You are receiving this document as you are listed as the primary care provider,follow-up provider, or the patient has been referred to you for consultation.This is in compliance with the Medicare and[facility] EHR Incentive Program,which states Providers who transition their patient to another setting of careor provider of care or refers their patient to another provider of care shouldprovide summary care record for each transition of care or referral. [facility] Allergies Active Allergy Reactions Criticality Noted Date [...] mg by mouth daily. 04/28/2022 Active rizatriptan (MAXALT-PRODUCTION HAND) 5 MG disintegrating tablet Take 5 mg by mouth daily as needed. 03/25/2022 Active topiramate (TOPAMAX) 100 MG tablet Take 100 mg by mouth two times a day. 05/11/2022 Active venlafaxine (EFFEXORXR) 150 MG 24 hour release capsule Take by mouth. 04/17/2022 Active Active Problems Problem Noted Date Diagnosed Date Migraine 02/27/2003 Overview (05/15/2017): Migraine Without Aura Encounters Date Type Department Care Team Description 08/19/2024 10:45 AM HRIS ANALYST Ancillary Procedure [facility] [address] [place] [address] Chucho Dupont MD Pain, joint, ankle and foot, right; Posterior tibial tendinitis of right lower extremity 08/03/2024 1:30 PM HRIS ANALYST Office Visit [facility] [address] [place] [address] Chucho Dupont MD Pain, joint, ankle and foot, right (Primary Dx); Posterior tibial tendinitis of right lower extremity [...] Comments Blood Pressure 116/86 11/07/2007 3:29 PM HRIS ANALYST Pulse 60 11/07/2007 3:29 PM HRIS ANALYST Temperature 36.7 C (98.1 F) 09/04/2006 12:13 PM HRIS ANALYST ORAL C: 36.7 C Respiratory Rate 16 [...] 11/08/2012 11/08/2007, 07/21/2002 COVID-19 Vaccine ( season) 2024 06/29/2022, 01/31/2022, 08/09/2021, Additional history exists Influenza (#1) 2024 08/20/2023, 03/2022, 07/11/2021, Additional history exists DTaP/Tdap/Td (3 - [...] patient's age to complete this topic RSV Aged Out No longer eligi ble based on patient's age to complete this topic MCV4 Aged Out No longer eligi ble based on patient's age to complete this topic Pneumococcal Aged Out No longer eligi ble based on patient's age to complete this topic Procedures Procedure Name Priority Date/Time Associated Diagnosis Comments US INJECTION RT TENDON OR LIGAMENT Routine 08/19/2024 11:07 AM HRIS ANALYST Pain, joint, ankle and foot, right Posterior tibial tendinitis of right lower extremity HGB A1C Routine 11/08/2007 10:48 AM HRIS ANALYST LIPID PANEL & DIRECT LDL (IF NEEDED) Routine 11/08/2007 10:48 AM HRIS ANALYST from Last 3 Months or Most Recently Relevant to Health Maintenance Results * US Injection Rt Tendon or Ligament (08/19/2024 11:07 AM HRIS ANALYST) Anatomical Region Laterality Modality Ultrasound 08/19/2024 10:4 0 AM HRIS ANALYST Narrative 08/19/2024 11:13 AM HRIS ANALYST PROCEDURE: The risks, benefits, and alternatives were discussed with the patient who gave full written and verbal consent to proceed. A final pause was performed prior to the procedure to verify patient identification and site of procedure. Using local anesthesia, sterile technique, and ultrasound guidance, a 25-gauge needle was used to inject 2 mL of 1% lidocaine and 40 mg of triamcinolone into the right posterior tibial tendon sheath. Needle placement was confirmed within the tendon sheath under direct visualization using ultrasound and permanent images were saved. There were no immediate complications. Preprocedure pain level 7 of 10; postprocedure pain level 6 of 10. Procedure Note Juan Manuel Wellington MD - 08/19/2024 PROCEDURE: The risks, benefits, and alternatives were discussed with thepatient who gave full written and verbal consent to proceed. A final pausewas performed prior to the procedure to verify patient identification andsite of procedure. Using local anesthesia, sterile technique, andultrasound guidance, a 25-gauge needle was used to inject 2 mL of 1%lidocaine and 40 mg of triamcinolone into the right posterior tibialtendon sheath. Needle placement was confirmed within the tendon sheathunder direct visualization using ultrasound and permanent images weresaved. There were no immediate complications. Preprocedure pain level 7of 10; postprocedure pain level 6 of 10. Chucho Dupont MD RAD US * (ABNORMAL) Lipid Panel and Direct LDL(If Needed) (11/08/2007 10:48 AM HRIS ANALYST) Hours Fasting 12.0 Hours HP CONVERSION Cholesterol/HDL Ratio Screen 4.3 No normal range HP CONVERSION Cholesterol 141 <200 mg/dL HP CONVERSION HDL Cholesterol 33(L) >40 mg/dL HP CONVERSION Triglycerides 119 0 - 149 mg/dL HP CONVERSION LDL Calculated 84 0 - 130 mg/dL HP CONVERSION Comment: 11/08/2007 10:4 8 AM HRIS ANALYST Maverick Fagan MD LAB_1 Performing Organization Address [facility] Co de Phone Number HP CONVERSION * (ABNORMAL) Hgb A1c (11/08/2007 10:48 AM HRIS ANALYST) HGB A1C Sent Ref(A) <6.0 % HP CONVERSION Comment: Elevated hemoglobin F (>5%) detected on chromatogram which is interfering with A1C. Specimen sent to reference lab for assay by alternative methodology. Elevated hemoglobin F (>5%) detected on chromatogram which is interfering with A1c. Specimen sent to reference lab for assay by alternative methodology. 11/08/2007 10:4 8 AM HRIS ANALYST Maverick Fagan MD LAB_1 Performing Organization Address [place]/[facility] Co de Phone Number HP CONVERSION from Last 3 Months or Most Recently Relevant to Health Maintenance Care Teams Jewelry Inspector Relationship Specialty Start Date End Date Everett Hendrix MD [address] [place] [address] PCP - General 07/07/14
--- OUTSIDE RECORDS SUMMARY | 2024-08-21 08:19 | XMS_ITS | Encounter Summary ---
Author Organization [facility] Address [address] [place] [address] Care Team Providers Care Watch Crystal Cutter Name Role Phone Everett Hendrix MD Primary Care Provider [phone] Encounter Details Date Type Department Care Team (Latest Contact Info) Description 04/10/1996 Notes/Orders Alonzo Chapman MD [address] [place] [address] Social History Tobacco Use Types [...] on filedocumented in this encounter Care Teams Watch Crystal Cutter Relationship Specialty Start Date End Date Everett Hendrix MD [address] [place] [address] PCP - General 07/07/14 documented as of this encounter
--- OUTSIDE RECORDS SUMMARY | 2024-08-21 08:19 | XMS_ITS | Referral Summary ---
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
--- OUTSIDE RECORDS SUMMARY | 2024-08-21 08:19 | XMS_ITS | Encounter Summary ---
Author Organization [facility] Address [address] [place] [address] Care Team Providers Care Apiculture Teacher Name Role Phone Everett Hendrix MD Primary Care Provider [phone] Reason for Visit * Procedure/Equipment (Routine) - Incomplete Specialty Diagnoses / Procedures Referred By Aleksandra cisse Referred To Contact Diagnoses Pain, joint, ankle and foot, right Posterior tibial tendinitis of right lower extremity Procedures US Injection Rt Tendon or Ligament Chucho Dupont MD [address] [place] [address] [place] [address] Referral ID Status Reason Start Date Expiration Date V isits Requested Visits Authorized [id number] Incomplete 08/03/2024 11/02/2025 1 1 Encounter Details Date Type Department Care Team (Late st Contact Info) Description 08/19/2024 10:45 AM TIMBER ROBBER Ancillary Procedure [facility] [address] [place], [place] [id number] Chucho Dupont MD [address] [facility] [place] [address] Pain, joint, ankle and foot, right; Posterior [...] TENDON OR LIGAMENT Routine 08/19/2024 11:07 AM TIMBER ROBBER Pain, joint, ankle and foot, right Posterior tibial tendinitis of right lower extremity documented in this encounter Results * US Injection Rt Tendon or Ligament (08/19/2024 11:07 AM TIMBER ROBBER) Anatomical Region Laterality Modality Ultrasound 08/19/2024 10:4 0 AM TIMBER ROBBER Narrative 08/19/2024 11:13 AM TIMBER ROBBER PROCEDURE: The risks, benefits, and alternatives were [...] level 6 of 10. Chucho Dupont MD [facility] documented in this encounter Visit Diagnoses Diagnosis Pain, joint, ankle and foot, right Posterior tibial tendinitis of right lower extremity documented in this encounter Administered Medications Inactive Administered Medications - up to 3 most recent administrations Medication Order MAR Action Action Date Dose Rate Site triamcinolone acetonide (KENALOG-40) 40 MG/ML injection 40 mg 40 mg, Intra-articular, ONCE, On Sat08/19/24 at 1115, For 1 dose Given 08/19/2024 10:49 AM TIMBER ROBBER 40 mg documented in this encounter Care Teams Apiculture Teacher Relationship Specialty Start Date End Date Everett Hendrix MD [address] [place] [address] PCP - General 07/07/14 documented as of this encounter
--- OUTSIDE RECORDS SUMMARY | 2024-08-21 08:19 | XMS_ITS | Encounter Summary ---
Author Organization [employer] Address [address] [place] [address] Care Team Providers Care Supply Chain Design Manager Name Role Phone Everett Hendrix MD Primary Care Provider [phone] Encounter Details Date Type Department Care Team (Latest Contact Info) Description 06/19/1998 Orders Only Luis Alberto Cadena MD [address] [place] [address] Social History Tobacco Use Types Packs/Day Years [...] on filedocumented in this encounter Care Teams Supply Chain Design Manager Relationship Specialty Start Date End Date Everett Hendrix MD [address] [place] [address] PCP - General 07/07/14 documented as of this encounter
--- OUTSIDE RECORDS SUMMARY | 2024-08-21 08:19 | XMS_ITS | Clinical Summary ---
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 Care Teams Applied Biology Professor Relationship Specialty Start Date End Date Everett Hendrix MD [facility] [id number] PCP - General Family Medicine - Sports Medicine 08/01/17 Kecia Guillen GC [facility] [place] [phone] Genetic Counselor Genetic Counselor, MS 07/15/17
--- OUTSIDE RECORDS SUMMARY | 2024-08-21 08:19 | XMS_ITS | Encounter Summary ---
Author Organization [employer] [facility] Address [address] [place] [address] Care Team Providers Care Clinical Specialist Medical Device Name Role Phone Everett Hendrix MD Primary Care Provider [phone] Reason for Referral * Procedure/Equipment (Routine) - Incomplete Specialty Diagnoses / Procedures Referred By Aleksandra cisse Referred To Contact Diagnoses Pain, joint, ankle and foot, right Posterior tibial tendinitis of right lower extremity Procedures US Injection Rt Tendon or Ligament Chucho Dupont MD [address] [place] [address] [place] [address] Referral ID Status Reason Start Date Expiration Date V isits Requested Visits Authorized [id number] Incomplete 08/03/2024 11/02/2025 1 1 TION CLASSIFICATION MANAGER Reason for Visit * Reason Comments Follow-up Encounter Details Date Type Department Care Team (Late st Contact Info) Description 08/03/2024 1:30 PM POSITION CLASSIFICATION MANAGER Office Visit [facility] [place] [address] [facility] [place], [place] [address] Chucho Dupont MD [address] [place] [address] [place] [address] Pain, joint, ankle and foot, right (Primary [...] AM CDT documented as of this encounter Patient Instructions * Patient Instructions* Redd Rojas ATC - 08/03/2024 1:30 PM POS[address] CLASS[address] Dr. Chucho Dupont MD Orthopaedic Surgeon/Foot & Ankle Specialist Car Framer, [facility] Medication Requests: Prescriptions are not filled on weekends or on weekdays after 3:00 PM TION CLASSIFICATION MANAGER documented in this encounter Progress Notes * Chucho Dupont MD - 08/03/2024 12:00 AM CST NAME: RACHID BAILEY CSN: [id number] CLINIC NOTE DATE OF SERVICE: 08/03/2024 : 1970 CHIEF COMPLAINT: 1.Right subtalar joint arthritis. 2.Right posterior tibialis tendinitis. Mr. Bailey presents today for further followup. Reports to have been doing well with injections. The last set of injections were performed in early January 2024. No physical exam was performed today. ASSESSMENT: 1.Right subtalar joint arthritis. 2.Right posterior tibialis tendinosis. PLAN: I discussed with the patient that given his success, we will recommend to undergo future injections in order to control his symptoms. I discussed with him that injections will be perfectly safeto be performed as long as they are 3 months apart. On today's visit, he was given an order for a posterior tibialis tendon sheath injection with lidocaine and Kenalog for a diagnosis of tendinosis. If the injection is not successful in improving his symptoms, we will add a subtalar joint injection on a different day for an indication of arthritis, also to be performed with lidocaine and Kenalog. The first injection will be performed ultrasound-guided. The second injection will be fluoroscopic-guided. In the meantime, he has no restrictions. He will follow up on p.r.n. basis and he will call us whenhe needs future injections, which will be approved as long as they are 3 months apart. TT: 20 minutes. CHUCHO DUPONT MD FAP/AQS /[id number] TION CLASSIFICATION MANAGER documented in this encounter Plan of Treatment Not on file documented as of this encounter Results * US Injection Rt Tendon or Ligament (08/19/2024 11:07 AM POSITION CLASSIFICATION MANAGER) Anatomical Region Laterality Modality Ultrasound 08/19/2024 10:4 0 AM POSITION CLASSIFICATION MANAGER Narrative 08/19/2024 11:13 AM POSITION CLASSIFICATION MANAGER PROCEDURE: The risks, benefits, and alternatives were [...] level 6 of 10. Chucho Dupont MD [facility] documented in this encounter Visit Diagnoses Diagnosis Pain, joint, ankle and foot, right- Primary Posterior tibial tendinitis of right lower extremity Pain, joint, ankle and foot, right Posterior tibial tendinitis of right lower extremity documented in this encounter Care Teams Clinical Specialist Medical Device Relationship Specialty Start Date End Date Everett Hendrix MD [address] [place] [address] PCP - General 07/07/14 documented as of this encounter
== END 2024-08-21 08:09 | disposition home or self-care (01) ==
PROVIDERS: PCP Family Medicine; Visit Provider Family Medicine
DX: E03.9 Hypothyroidism, unspecified (principal); I10 Essential (primary) hypertension; R73.03 Prediabetes; R79.89 Other specified abnormal findings of blood chemistry; R53.83 Other fatigue; D64.9 Anemia, unspecified; F32.A Depression, unspecified
CPT/HCPCS: 80053; 82306; 84270; 84402; 84403; 84443

== ENCOUNTER 2025-07-07 08:16 | Outpatient (CLI) | payer BC, SELFPAY | END 2025-07-07 08:17 | disposition home or self-care (01) | LOC: NFLDREF 07-09 09:37 | PROVIDERS: PCP Family Medicine; Referring Provider Family Medicine; Visit Provider Family Medicine | DX: E03.9 Hypothyroidism, unspecified (principal); R79.89 Other specified abnormal findings of blood chemistry; Z13.6 Encounter for screening for cardiovascular disorders; Z12.5 Encounter for screening for malignant neoplasm of prostate | CPT/HCPCS: 80053; 80061; 82306; 84443; G0103 ==

== ENCOUNTER 2025-07-12 08:16 | Outpatient (CLI) | payer BC, SELFPAY | END 2025-07-12 08:17 | disposition home or self-care (01) | LOC: NFLDREF 07-15 18:53 | PROVIDERS: PCP Family Medicine; Referring Provider Family Medicine; Visit Provider Family Medicine | DX: R79.89 Other specified abnormal findings of blood chemistry | CPT/HCPCS: 84270; 84402; 84403 ==

== ENCOUNTER 2025-08-20 07:05 | Outpatient (CLI) | payer BC, SELFPAY ==
--- NOTE | 2025-08-20 07:15 | CRLHL7_ITS ---
For Patients: As a result of the Century Cures Act, medical imaging exams and procedure reports are released immediately into your electronic medical record. You may view this report before your referring provider. If you have questions, please contact your health care provider. INDICATION: Elevated LFTs. Nonalcoholic steatohepatitis. TECHNIQUE: Ultrasound abdomen limited. Sonographic images of the right upper quadrant were obtained using mayers-scale and color Doppler images. COMPARISON: None available at this time. FINDINGS: Liver: Mildly increased echogenicity of the liver parenchyma. Focal echogenic 2.4 cm lesion in the posterior right lobe. The liver measures 15.0 cm. Bile ducts: Intrahepatic bile ducts are not dilated. The common bile duct measures 0.4 cm. Gallbladder: Surgically absent. Pancreas: Pancreas is poorly visualized secondary to acoustic shadowing from overlying/adjacent bowel gas. Right kidney: The right kidney measures 11.3 cm in length. No renal calculi or significant hydronephrosis is identified. IMPRESSION: 1. Mildly increased echogenicity of the liver parenchyma, compatible with diffuse hepatic steatosis. 2. Focal echogenic 2.4 cm hepatic lesion in the posterior right lobe of the liver, may reflect a hemangioma. This could be further evaluated/confirmed with liver protocol CT or MRI. 3. Postcholecystectomy. Dictated by Frances Doherty MD @ 08/20/2025 2:33:33 PM (Electronically Signed)
== END 2025-08-20 07:06 | disposition home or self-care (01) ==
LOC: US 07:06
PROVIDERS: PCP Family Medicine; Visit Provider Family Medicine
DX: R79.89 Other specified abnormal findings of blood chemistry (principal); K76.0 Fatty (change of) liver, not elsewhere classified; K76.9 Liver disease, unspecified
CPT/HCPCS: 76705